=== PATIENT | male | born 1990 | race African-American/Black ===

== ENCOUNTER 2016-06-15 10:35 | Emergency (ER) | payer OTHER ==
[~2016-06-15] VITALS: Ht 182.9 cm; Wt 85.5 kg
[~2016-06-15 10:35] MED LIST: ALBU18HF INHALATION; ALBU8.5H3 INH; BECL8.7A INH; BENZ100C70 PO; FLOV110 INHALATION; PRED20TA PO
[2016-06-15 10:40] VITALS: Ht 182.9 cm; Wt 85.5 kg
[2016-06-15] MEDS ORDERED: ALBU18HF INHALATION (11:30)
--- NOTE | 2016-06-15 12:12 | ERD ---
ER Documentation Chief Complaint Date/Time DATE: 06/15/16 TIME: 12:11 Chief Complaint refill of ventolin HPI This 26-year-old presented emergency room [facility] for refills albuterol inhaler as he has run out recently. He is not currently have any signs of shortness of breath, cough or fever. ROS All systems reviewed and are negative except as per history of present illness. Medications Home Meds Active Scripts Albuterol Sulfate* (Ventolin HFA*) 18 Gm Hfa.aer.ad, 2 PUFF INHALATION Q4H, #2 INHALER Prov:KAROLINACIPRIANO DO 06/15/16 Albuterol Sulfate* (Ventolin HFA*) 18 Gm Hfa.aer.ad, 2 PUFF INHALATION Q4H, #1 INHALER Prov:AGUSTINA GOMEZ MD 05/13/16 Albuterol Sulfate* (Ventolin HFA*) 18 Gm Hfa.aer.ad, 2 PUFF INHALATION Q4H, #1 INHALER Prov:EDINSON TEIXEIRA 05/01/16 Prednisone* (Prednisone*) 20 Mg Tab, 40 MG PO DAILY for 4 Days, TAB Prov:AGUSTINA GOMEZ MD 03/04/16 Albuterol Sulfate* (Ventolin HFA*) 18 Gm Hfa.aer.ad, 2 PUFF INHALATION Q4H, #1 INHALER 2 Refills Prov:AGUSTINA GOMEZ MD 03/04/16 Beclomethasone Dip* (Qvar 40*) 7.3 Gm Inha, 1 PUFF INH BID, #1 INHALER Prov:AGUSTINA GOMEZ MD 03/04/16 Benzonatate* (Tessalon Perle*) 100 Mg Capsule, 100 MG PO Q8H Y for COUGH, #30 CAP Prov:JESSICA MACIAS DO 01/27/16 Prednisone* (Prednisone*) 20 Mg Tab, 40 MG PO DAILY for 4 Days, #15 TAB take 40 mg for 4 days, then 30 mg for 3 days. Prov:JESSICA MACIAS DO 01/27/16 Fluticasone Propionate* (Flovent* HFA 110) 12 Gm Inha, 1 PUFF INHALATION BID, # 1 INHALER Prov:JESSICA MACIAS DO 01/27/16 Albuterol Sulfate* (Proair HFA*) 8.5 Gm Hfa.aer.ad, 2 PUFF INH Q4H Y for WHEEZING AND SOB, #1 INHALER Prov:JESSICA MACIAS DO 01/27/16 Albuterol Sulfate* (Proair HFA*) 8.5 Gm Hfa.aer.ad, 2 PUFF INH Q4, #1 INHALER Prov:YVAN OLIVIER PA-C 01/15/16 Prednisone* (Prednisone*) 20 Mg Tab, 40 MG PO DAILY for 4 Days, TAB Prov:CATHY CARDOSO PA-C 12/31/15 Albuterol Sulfate* (Proair HFA*) 8.5 Gm Hfa.aer.ad, 2 PUFF INH Q4, #1 INHALER Prov:CATHY CARDOSO PA-C 12/31/15 Albuterol Sulfate* (Ventolin HFA*) 18 Gm Hfa.aer.ad, 2 PUFF INHALATION Q4H, #2 INHALER Prov:CIPRIANO TURCIOS DO 12/18/15 Albuterol Sulfate* (Proair HFA*) 8.5 Gm Hfa.aer.ad, 2 PUFF INH Q4, #1 INHALER Prov:STANTON ROBERTSON DO 11/30/15 Allergies Allergies: Coded Allergies: No Known Allergy (Unverified , 12/18/15) PMhx/Soc History of Surgery: No Anesthesia Reaction: No Hx Neurological Disorder: No Hx Respiratory Disorders: Yes (asthma ) Hx Cardiac Disorders: No Hx Psychiatric Problems: No Hx Miscellaneous Medical Probl: No Hx Alcohol Use: Yes Hx Substance Use: Yes (marijuana ) Hx Tobacco Use: No Physical Exam Vitals Vital Signs Date Time Temp Pulse Resp B/P Pulse Ox O2 Delivery O2 Flow Rate FiO2 06/15/16 10:40 97.9 67 18 110/58 99 Physical Exam Const: [] No distress Head: Atraumatic Resp: Clear to auscultation bilaterally Procedures/MDM Simple medication refill for Ventolin. I discharged the patient with 2 albuterol refills as well as provided primary care follow-up with list of local clinic care clinics recommended follow-up in 2-3 days. Return precautions for any acute exacerbation or shortness of breath. Departure Diagnosis: Primary Impression: Encounter for medication refill Condition: Stable Patient Instructions: Asthma Medications Referrals: [facility] YOU HAVE RECEIVED A MEDICAL SCREENING EXAM AND THE RESULTS INDICATE THAT YOU DO NOT HAVE A CONDITION THAT REQUIRES URGENT TREATMENT IN THE EMERGENCY DEPARTMENT. FURTHER EVALUATION AND TREATMENT OF YOUR CONDITION CAN WAIT UNTIL YOU ARE SEEN IN YOUR DOCTORS OFFICE WITHIN THE NEXT 1-2 DAYS. IT IS YOUR RESPONSIBILITY TO MAKE AN APPOINTMENT FOR FOLOW-UP CARE. IF YOU HAVE A PRIMARY DOCTOR --you should call your primary doctor and schedule an appointment IF YOU DO NOT HAVE A PRIMARY DOCTOR YOU CAN CALL OUR PHYSICIAN REFERRAL HOTLINE AT IF YOU CAN NOT AFFORD TO SEE A PHYSICIAN YOU CAN CHOSE FROM THE FOLLOWING [facility] CL[facility]ICS [facility] [address] [facility]. [facility] [address] [facility] [facility] [address] [facility]. [facility] [address] [facility]. [facility] [address] [facility]. [facility]. [address] Additional Instructions: Call your primary care doctor TOMORROW for an appointment during the next 2-3 days.See the doctor sooner or return here if your condition worsens before your appointment time. CIPRIANO TURCIOS DO Jun 15, 2016 12:12
== END 2016-06-15 11:37 | disposition home or self-care (01) ==
LOC: E/R 10:35
DX: Z76.0 Encounter for issue of repeat prescription (principal); J45.909 Unspecified asthma, uncomplicated
CPT/HCPCS: 99281

== ENCOUNTER 2016-08-05 19:13 | Emergency (ER) | payer OTHER ==
[~2016-08-05] VITALS: Ht 193 cm; Wt 87.5 kg
[2016-08-05 19:24] VITALS: Ht 193 cm; Wt 87.5 kg
[2016-08-05 20:08] LABS: URINE BLOOD (Dip) POC Negative (NEGATIVE)
--- NOTE | 2016-08-05 20:11 | ERD ---
ER Documentation Chief Complaint Date/Time DATE: 08/05/16 TIME: 20:10 Chief Complaint penile discharge/painful urination x 2 days HPI This 26-year-old male complains of penile discharge and dysuria for the last 2 days. He was notified by partner that they are diagnosed with chlamydia. He denies fevers, vomiting, shortness breath or chest pain or general rashes or blisters. ROS All systems reviewed and are negative except as per history of present illness. Medications Home Meds Active Scripts Albuterol Sulfate* (Ventolin HFA*) 18 Gm Hfa.aer.ad, 2 PUFF INHALATION Q4H, #2 INHALER Prov:KAROLINACIPRIANO 06/15/16 Albuterol Sulfate* (Ventolin HFA*) 18 Gm Hfa.aer.ad, 2 PUFF INHALATION Q4H, #1 INHALER Prov:AGUSTINA GOMEZ MD 05/13/16 Albuterol Sulfate* (Ventolin HFA*) 18 Gm Hfa.aer.ad, 2 PUFF INHALATION Q4H, #1 INHALER Prov:EDINSON TEIXEIRA 05/01/16 Prednisone* (Prednisone*) 20 Mg Tab, 40 MG PO DAILY for 4 Days, TAB Prov:AGUSTINA GOMEZ MD 03/04/16 Albuterol Sulfate* (Ventolin HFA*) 18 Gm Hfa.aer.ad, 2 PUFF INHALATION Q4H, #1 INHALER 2 Refills Prov:AGUSTINA GOMEZ MD 03/04/16 Beclomethasone Dip* (Qvar 40*) 7.3 Gm Inha, 1 PUFF INH BID, #1 INHALER Prov:AGUSTINA GOMEZ MD 03/04/16 Benzonatate* (Tessalon Perle*) 100 Mg Capsule, 100 MG PO Q8H Y for COUGH, #30 CAP Prov:JESSICA MACIAS DO 01/27/16 Prednisone* (Prednisone*) 20 Mg Tab, 40 MG PO DAILY for 4 Days, #15 TAB take 40 mg for 4 days, then 30 mg for 3 days. Prov:JESSICA MACIAS DO 01/27/16 Fluticasone Propionate* (Flovent* HFA 110) 12 Gm Inha, 1 PUFF INHALATION BID, # 1 INHALER Prov:JESSICA MACIAS DO 01/27/16 Albuterol Sulfate* (Proair HFA*) 8.5 Gm Hfa.aer.ad, 2 PUFF INH Q4H Y for WHEEZING AND SOB, #1 INHALER Prov:JESSICA MACIAS DO 01/27/16 Albuterol Sulfate* (Proair HFA*) 8.5 Gm Hfa.aer.ad, 2 PUFF INH Q4, #1 INHALER Prov:YVAN OLIVIER PA-C 01/15/16 Prednisone* (Prednisone*) 20 Mg Tab, 40 MG PO DAILY for 4 Days, TAB Prov:CATHY CARDOSO PA-C 12/31/15 Albuterol Sulfate* (Proair HFA*) 8.5 Gm Hfa.aer.ad, 2 PUFF INH Q4, #1 INHALER Prov:CATHY CARDOSO PA-C 12/31/15 Albuterol Sulfate* (Ventolin HFA*) 18 Gm Hfa.aer.ad, 2 PUFF INHALATION Q4H, #2 INHALER Prov:CIPRIANO TURCIOS DO 12/18/15 Albuterol Sulfate* (Proair HFA*) 8.5 Gm Hfa.aer.ad, 2 PUFF INH Q4, #1 INHALER Prov:STANTON ROBERTSON DO 11/30/15 Allergies Allergies: Coded Allergies: No Known Allergy (Unverified , 08/05/16) PMhx/Soc Medical and Surgical Hx: pt denies Surgical Hx History of Surgery: No Anesthesia Reaction: No Hx Neurological Disorder: No Hx Respiratory Disorders: Yes (asthma ) Hx Cardiac Disorders: No Hx Psychiatric Problems: No Hx Miscellaneous Medical Probl: No Hx Alcohol Use: Yes Hx Substance Use: Yes (marijuana ) Hx Tobacco Use: No Smoking Status: Never smoker Physical Exam Vitals Vital Signs Date Time Temp Pulse Resp B/P Pulse Ox O2 Delivery O2 Flow Rate FiO2 08/05/16 19:24 99.8 78 20 118/64 100 Physical Exam Const: [] Alert, [id number]. Head: Atraumatic Eyes: Normal Conjunctiva ENT: Normal External Ears, Nose and Mouth. Neck: Full range of motion..~ No meningismus. Resp: Clear to auscultation bilaterally Cardio: Regular rate and rhythm, no murmurs Abd: Soft, non tender, non distended. Normal bowel sounds. Slight penile discharge without rashes, or skin lesions. Nontender normal size testicles Skin: No petechiae or rashes Back: No midline or flank tenderness Ext: No cyanosis, or edema Neur: Awake and alert Psych: Normal Mood and Affect Results 24 hrs Current Medications Medications (Trade) Dose Ordered Sig/Terence Route PRN Reason Start Time Stop Time Status Last Admin Dose Admin Azithromycin (Zithromax) 1,000 mg ONCE ONCE PO 08/05/16 20:30 08/05/16 20:31 Ceftriaxone Sodium (Rocephin) 250 mg ONCE ONCE IM 08/05/16 20:30 08/05/16 20:31 Lidocaine (Xylocaine 1% (Mdv) 20 ml) 20 ml ONCE ONCE SC 08/05/16 20:30 08/05/16 20:31 Procedures/MDM Urine was sent for gonorrhea chlamydia. Patient presents with signs and symptoms of urethritis with a known possible exposure to chlamydia. He was given Zithromax 1 g by mouth and Rocephin 250 mg IM. The patient was stable with no new complaints during the ER course. Clinically, there is no current evidence to suggest meningitis, sepsis, acute abdomen, pneumonia, acute coronary syndrome, pulmonary embolism, or any other emergent condition appearing to require further evaluation or hospitalization. The patient should certainly return for any new or worsening symptoms per the aftercare instructions. They should otherwise follow-up with her primary care doctor for reevaluation this week. Departure Diagnosis: Primary Impression: Urethritis Condition: Stable Patient Instructions: Urethritis, Male (Gc Vs. Chlam) Additional Instructions: You have been treated for gonorrhea and chlamydia. Recommend notifying treating partners. Recheck for new or worsening symptoms with primary care doctor. Avoid unprotected sex for the next week. AGUSTINA GOMEZ MD Aug 05, 2016 20:11
[2016-08-05] MEDS ORDERED: CEFTRIAXONE 250 MG INJ IM ONE (20:30)
[2016-08-05] MEDS ORDERED: LIDOCAINE 1% (MDV) 20 ML INJ SC ONE (20:30)
[2016-08-05] MEDS ORDERED: AZITHROMYCIN 250 MG TAB PO ONE (20:30)
== END 2016-08-05 22:09 | disposition left against medical advice (07) ==
LOC: FTE 19:13
DX: N34.2 Other urethritis (principal); J45.909 Unspecified asthma, uncomplicated
CPT/HCPCS: 81003; 87591; 96372; J0696; Z7502; Z7610

== ENCOUNTER 2016-08-11 12:09 | Emergency (ER) | payer OTHER ==
[~2016-08-11] VITALS: Wt 83.0 kg
[2016-08-11] MEDS ORDERED: ALBUTEROL 0.5% (NEB) 2.5 MG/0.5 ML AMP HHN STA (12:37)
[2016-08-11] MEDS ORDERED: predniSONE 20 MG TAB PO ONE (13:00)
[2016-08-11] MEDS ORDERED: ALBU18HF INHALATION (13:09)
[2016-08-11] MEDS ORDERED: PRED20TA PO (13:09)
--- NOTE | 2016-08-11 13:19 | ERD ---
ER Documentation Chief Complaint Date/Time DATE: 08/11/16 TIME: 13:17 Chief Complaint PT HERE FOR MED REFILL FOR INHALER, PREDNISONE HPI This 26-year-old male presents with wheezing. He has a history of asthma and is out of his inhaler. Patient was seen by me proximal 1 week ago for urethritis. Review of the record shows that chlamydia is positive. He did get treated with Zithromax. Patient denies any fevers, vomiting, chest pain. ROS All systems reviewed and are negative except as per history of present illness. Medications Home Meds Active Scripts Albuterol Sulfate* (Ventolin HFA*) 18 Gm Hfa.aer.ad, 2 PUFF INHALATION Q4H, #1 INHALER Prov:AGUSTINA GOMEZ MD 08/11/16 Prednisone* (Prednisone*) 20 Mg Tab, 40 MG PO DAILY for 5 Days, TAB Prov:AGUSTINA GOMEZ MD 08/11/16 Albuterol Sulfate* (Ventolin HFA*) 18 Gm Hfa.aer.ad, 2 PUFF INHALATION Q4H, #2 INHALER Prov:CIPRIANO TURCIOS DO 06/15/16 Albuterol Sulfate* (Ventolin HFA*) 18 Gm Hfa.aer.ad, 2 PUFF INHALATION Q4H, #1 INHALER Prov:AGUSTINA GOMEZ MD 05/13/16 Albuterol Sulfate* (Ventolin HFA*) 18 Gm Hfa.aer.ad, 2 PUFF INHALATION Q4H, #1 INHALER Prov:EDINSON TEIXEIRA 05/01/16 Prednisone* (Prednisone*) 20 Mg Tab, 40 MG PO DAILY for 4 Days, TAB Prov:AGUSTINA GOMEZ MD 03/04/16 Albuterol Sulfate* (Ventolin HFA*) 18 Gm Hfa.aer.ad, 2 PUFF INHALATION Q4H, #1 INHALER 2 Refills Prov:AGUSTINA GOMEZ MD 03/04/16 Beclomethasone Dip* (Qvar 40*) 7.3 Gm Inha, 1 PUFF INH BID, #1 INHALER Prov:AGUSTINA GOMEZ MD 03/04/16 Benzonatate* (Tessalon Perle*) 100 Mg Capsule, 100 MG PO Q8H Y for COUGH, #30 CAP Prov:JESSICA MACIAS DO 01/27/16 Prednisone* (Prednisone*) 20 Mg Tab, 40 MG PO DAILY for 4 Days, #15 TAB take 40 mg for 4 days, then 30 mg for 3 days. Prov:JESSICA MACIAS DO 01/27/16 Fluticasone Propionate* (Flovent* HFA 110) 12 Gm Inha, 1 PUFF INHALATION BID, # 1 INHALER Prov:JESSICA MACIAS DO 01/27/16 Albuterol Sulfate* (Proair HFA*) 8.5 Gm Hfa.aer.ad, 2 PUFF INH Q4H Y for WHEEZING AND SOB, #1 INHALER Prov:JESSICA MACIAS DO 01/27/16 Albuterol Sulfate* (Proair HFA*) 8.5 Gm Hfa.aer.ad, 2 PUFF INH Q4, #1 INHALER Prov:YVAN OLIVIER PA-C 01/15/16 Prednisone* (Prednisone*) 20 Mg Tab, 40 MG PO DAILY for 4 Days, TAB Prov:CATHY CARDOSO PA-C 12/31/15 Albuterol Sulfate* (Proair HFA*) 8.5 Gm Hfa.aer.ad, 2 PUFF INH Q4, #1 INHALER Prov:CATHY CARDOSO PA-C 12/31/15 Albuterol Sulfate* (Ventolin HFA*) 18 Gm Hfa.aer.ad, 2 PUFF INHALATION Q4H, #2 INHALER Prov:CIPRIANO TURCIOS DO 12/18/15 Albuterol Sulfate* (Proair HFA*) 8.5 Gm Hfa.aer.ad, 2 PUFF INH Q4, #1 INHALER Prov:STANTON ROBERTSON DO 11/30/15 Allergies Allergies: Coded Allergies: No Known Allergy (Unverified , 08/05/16) PMhx/Soc History of Surgery: No Anesthesia Reaction: No Hx Neurological Disorder: No Hx Respiratory Disorders: Yes (asthma ) Hx Cardiac Disorders: No Hx Psychiatric Problems: No Hx Miscellaneous Medical Probl: No Hx Alcohol Use: Yes Hx Substance Use: Yes (marijuana ) Hx Tobacco Use: No Smoking Status: Never smoker Physical Exam Vitals Vital Signs Date Time Temp Pulse Resp B/P Pulse Ox O2 Delivery O2 Flow Rate FiO2 08/11/16 12:10 98.5 59 17 116/68 98 Physical Exam Const: [] Alert, [id number]. Head: Atraumatic Eyes: Normal Conjunctiva ENT: Normal External Ears, Nose and Mouth. Neck: Full range of motion..~ No meningismus. Resp: Clear to auscultation bilaterally. Scattered wheezing. No rales or retractions appreciated Cardio: Regular rate and rhythm, no murmurs Abd: Soft, non tender, non distended. Normal bowel sounds Skin: No petechiae or rashes Back: No midline or flank tenderness Ext: No cyanosis, or edema Neur: Awake and alert Psych: Normal Mood and Affect Results 24 hrs Current Medications Medications (Trade) Dose Ordered Sig/Terence Route PRN Reason Start Time Stop Time Status Last Admin Dose Admin Prednisone (Prednisone) 60 mg ONCE ONCE PO 08/11/16 13:00 08/11/16 13:01 DC 08/11/16 12:48 Albuterol (Proventil 0.5% (Neb)) 5 mg ONCE STAT HHN 08/11/16 12:37 08/11/16 12:38 DC 08/11/16 12:46 Procedures/MDM Patient was given prednisone 60 mg by mouth. Patient was given albuterol treatment 1 and had clear lungs on serial exam. Patient is requesting refills of his Ventolin and a short course of prednisone. Patient shows no signs of hypoxemia, respiratory distress, pneumonia. Patient is requesting a test of cure for his chlamydia and urine was sent for gonorrhea chlamydia. Patient has no current symptoms appears safe for discharge and outpatient treatment. The patient was stable with no new complaints during the ER course. Clinically, there is no current evidence to suggest meningitis, sepsis, acute abdomen, pneumonia, acute coronary syndrome, pulmonary embolism, or any other emergent condition appearing to require further evaluation or hospitalization. The patient should certainly return for any new or worsening symptoms per the aftercare instructions. They should otherwise follow-up with her primary care doctor for reevaluation this week. Departure Diagnosis: Primary Impression: Asthma exacerbation Condition: Stable Patient Instructions: Asthma, Acute (Adult) Additional Instructions: Recheck for new or worsening symptoms or primary care doctor. AGUSTINA GOMEZ MD Aug 11, 2016 13:18
[2016-08-11 13:28] VITALS: BP 119/70; PULSE 66; RESP 20; TEMP 98.3
== END 2016-08-11 13:31 | disposition home or self-care (01) ==
LOC: FTE 12:09
DX: J45.901 Unspecified asthma with (acute) exacerbation (principal)
CPT/HCPCS: 94664; J7512; Z7502; Z7610

== ENCOUNTER 2016-09-20 17:12 | Emergency (ER) | payer OTHER ==
[~2016-09-20] VITALS: Wt 89.0 kg
[2016-09-20] MEDS ORDERED: IPRATROPIUM (NEB) 0.5 MG/2.5 ML AMP INH STA (17:54)
[2016-09-20] MEDS ORDERED: predniSONE 20 MG TAB PO STA (17:54)
[2016-09-20] MEDS ORDERED: ALBUTEROL 0.5% (NEB) 2.5 MG/0.5 ML AMP INH STA (17:54)
[2016-09-20] MEDS ORDERED: ALBU8.5H3 INH (17:56)
[2016-09-20] MEDS ORDERED: PRED20TA PO (17:56)
--- NOTE | 2016-09-20 18:26 | RADRPT ---
PROCEDURE: Chest x-ray CLINICAL INDICATION: Asthma TECHNIQUE: Chest single view COMPARISON: 07/29/2014 FINDINGS: The heart is normal in size. The pulmonary vessels are normal in caliber. The lungs are clear. Th e costophrenic angles are sharp. The visualized bony thorax is unremarkable. IMPRESSION: No acute cardiopulmonary disease. RPTAT: HH .Luis Jain MD, Date Time Electronically viewed and signed by .Luis Jain MD, on 09/20/2016 18:26 .W/
--- NOTE | 2016-09-20 18:33 | ERD ---
ER Documentation Chief Complaint Date/Time DATE: 09/20/16 TIME: 18:31 Chief Complaint ASTHMA WITH PRODUCTIVE COUGH HPI 26-year-old man with a history of asthma complains of cough and wheezing 3-4 weeks. He quit smoking last month and states he has had increased cough, he also ran out of his albuterol inhaler. Denies fevers or chills, no weight loss , no hemoptysis, no chest pain or shortness of breath. She denies rash or calf or leg swelling. ROS All systems reviewed and are negative except as per history of present illness. Medications Home Meds Active Scripts Albuterol Sulfate* (Proair HFA*) 8.5 Gm Hfa.aer.ad, 2 PUFF INH Q6H Y for COUGH, #1 INHALER Prov:JOHN ARREAGA MD 09/20/16 Prednisone (Prednisone) 20 Mg Tablet, 20 MG PO BID, #8 TAB Prov:JOHN ARREAGA MD 09/20/16 Albuterol Sulfate* (Ventolin HFA*) 18 Gm Hfa.aer.ad, 2 PUFF INHALATION Q4H, #1 INHALER Prov:AGUSTINA GOMEZ MD 08/11/16 Prednisone* (Prednisone*) 20 Mg Tab, 40 MG PO DAILY for 5 Days, TAB Prov:AGUSTINA GOMEZ MD 08/11/16 Albuterol Sulfate* (Ventolin HFA*) 18 Gm Hfa.aer.ad, 2 PUFF INHALATION Q4H, #2 INHALER Prov:CIPRIANO TURCIOS DO 06/15/16 Albuterol Sulfate* (Ventolin HFA*) 18 Gm Hfa.aer.ad, 2 PUFF INHALATION Q4H, #1 INHALER Prov:AGUSTINA GOMEZ MD 05/13/16 Albuterol Sulfate* (Ventolin HFA*) 18 Gm Hfa.aer.ad, 2 PUFF INHALATION Q4H, #1 INHALER Prov:EDINSON TEIXEIRA 05/01/16 Prednisone* (Prednisone*) 20 Mg Tab, 40 MG PO DAILY for 4 Days, TAB Prov:AGUSTINA GOMEZ MD 03/04/16 Albuterol Sulfate* (Ventolin HFA*) 18 Gm Hfa.aer.ad, 2 PUFF INHALATION Q4H, #1 INHALER 2 Refills Prov:AGUSTINA GOMEZ MD 03/04/16 Beclomethasone Dip* (Qvar 40*) 7.3 Gm Inha, 1 PUFF INH BID, #1 INHALER Prov:AGUSTINA GOMEZ MD 03/04/16 Benzonatate* (Tessalon Perle*) 100 Mg Capsule, 100 MG PO Q8H Y for COUGH, #30 CAP Prov:JESSICA MACIAS 01/27/16 Prednisone* (Prednisone*) 20 Mg Tab, 40 MG PO DAILY for 4 Days, #15 TAB take 40 mg for 4 days, then 30 mg for 3 days. Prov:COLLEENJESSICA FOUNTAIN 01/27/16 Fluticasone Propionate* (Flovent* HFA 110) 12 Gm Inha, 1 PUFF INHALATION BID, # 1 INHALER Prov:COLLEEN,JESSICA DO 01/27/16 Albuterol Sulfate* (Proair HFA*) 8.5 Gm Hfa.aer.ad, 2 PUFF INH Q4H Y for WHEEZING AND SOB, #1 INHALER Prov:JESSICA MACIAS 01/27/16 Albuterol Sulfate* (Proair HFA*) 8.5 Gm Hfa.aer.ad, 2 PUFF INH Q4, #1 INHALER Prov:YVAN OLIVIER PA-C 01/15/16 Prednisone* (Prednisone*) 20 Mg Tab, 40 MG PO DAILY for 4 Days, TAB Prov:CATHY CARDOSO PA-C 12/31/15 Albuterol Sulfate* (Proair HFA*) 8.5 Gm Hfa.aer.ad, 2 PUFF INH Q4, #1 INHALER Prov:CATHY CARDOSO PA-C 12/31/15 Albuterol Sulfate* (Ventolin HFA*) 18 Gm Hfa.aer.ad, 2 PUFF INHALATION Q4H, #2 INHALER Prov:CIPRIANO TURCIOS DO 12/18/15 Albuterol Sulfate* (Proair HFA*) 8.5 Gm Hfa.aer.ad, 2 PUFF INH Q4, #1 INHALER Prov:STANTON ROBERTSON DO 11/30/15 Allergies Allergies: Coded Allergies: No Known Allergy (Unverified , 08/05/16) PMhx/Soc Asthma History of Surgery: No Anesthesia Reaction: No Hx Neurological Disorder: No Hx Respiratory Disorders: Yes (asthma ) Hx Cardiac Disorders: No Hx Psychiatric Problems: No Hx Miscellaneous Medical Probl: No Hx Alcohol Use: Yes Hx Substance Use: Yes (marijuana ) Hx Tobacco Use: No Smoking Status: Former smoker FmHx Family History: No diabetes Physical Exam Vitals Vital Signs Date Time Temp Pulse Resp B/P Pulse Ox O2 Delivery O2 Flow Rate FiO2 09/20/16 18:20 76 22 97 21 09/20/16 17:16 98.0 79 18 122/79 99 Physical Exam GENERAL: Well-developed, well-nourished, well-hydrated, in no apparent distress , looks nontoxic in appearance HEENT: Moist mucous membranes, pink conjunctiva, no cervical spine tenderness or step-off deformities, no goiter, no jaundice or icterus, extraocular movements intact without pain. No submandibular induration, and no pharyngeal erythema NEURO: Alert and oriented 3, cranial nerves II through XII intact bilaterally, pupils equal round reactive to light, no focal deficits or facial asymmetry, sensation intact distally Strength 5/5 in upper and lower extremities bilaterally CARDIAC: Regular rate and rhythm, no murmurs rubs or gallops LUNGS: Scattered wheezes, no crackles or stridor ABDOMEN: Soft nontender, no guarding, no rigidity, no rebound, no psoas sign no obturator sign. Normoactive bowel sounds SKIN: Warm and dry to touch, no abrasions, contusions, or hematomas, no lacerations, no ecchymosis, no target lesions, and without ulcers EXTREMITIES: No clubbing cyanosis or edema, calves are bilaterally symmetrical, no Homans sign, no popliteal cord sign. Distal pulses equal and bilateral PSYCH: Normal affect without agitation or irritability Results 24 hrs Current Medications Medications (Trade) Dose Ordered Sig/Terence Route PRN Reason Start Time Stop Time Status Last Admin Dose Admin Albuterol (Proventil 0.5% (Neb)) 10 mg ONCE STAT INH 09/20/16 17:54 09/20/16 17:56 DC 09/20/16 18:17 Ipratropium [place] (Atrovent 0.02% (Neb)) 1 mg ONCE STAT INH 09/20/16 17:54 09/20/16 17:56 DC 09/20/16 18:17 Prednisone (Prednisone) 60 mg ONCE STAT PO 09/20/16 17:54 09/20/16 17:56 DC 09/20/16 18:15 Procedures/MDM I administered 10 mg of albuterol and ipratropium 1 mg via nebulizer, prednisone 60 mg p.o. with good effect. Repeat pulmonary exam revealed clear lungs without wheezing. Respiratory rate was 18 breaths per minute and normal posttreatment. Chest X-ray 1V Interpreted by me: Soft Tissue: No acute abnormalities Bones: No acute abnormalities Mediastinum/Cardiac Silhouette/Lungs: No acute abnormalities Differential diagnoses considered, included but not limited to acute coronary syndrome, pulmonary embolism, aortic dissection, abdominal aortic aneurysm, sepsis, stroke, meningitis, encephalitis, pneumonia, appendicitis, cholecystitis , bowel obstruction, pyelonephritis, nephrolithiasis, cystitis, as well as metabolic, hematologic, and electrolyte abnormalities. As well as abscess, cellulitis, fractures, and dislocations. Patient feels much better at this time, and vital signs are normal, symptoms have improved. I did give strict instructions to return to the ED if symptoms continue or worsen, patient will otherwise follow-up with primary care physician. Patient understood instructions and agreed to plan. Departure Diagnosis: Primary Impression: Asthma attack Condition: Good Patient Instructions: Asthma, Acute (Adult) JOHN ARREAGA MD Sep 20, 2016 18:33
== END 2016-09-20 19:22 | disposition home or self-care (01) ==
LOC: FTE 17:12
DX: J45.901 Unspecified asthma with (acute) exacerbation (principal); Z87.891 Personal history of nicotine dependence
CPT/HCPCS: 71010; 94644; J7512; Z7502; Z7610

== ENCOUNTER 2016-10-12 04:18 | Emergency (ER) | payer OTHER ==
[~2016-10-12] VITALS: Ht 177.8 cm; Wt 83.0 kg
[2016-10-12 04:24] VITALS: Ht 177.8 cm; Wt 83.0 kg
[2016-10-12] MEDS ORDERED: ALBUTEROL 0.5% (NEB) 2.5 MG/0.5 ML AMP INH STA (06:18)
[2016-10-12] MEDS ORDERED: IPRATROPIUM (NEB) 0.5 MG/2.5 ML AMP INH STA (06:18)
[2016-10-12] MEDS ORDERED: METHYLPREDNISOLONE 125 MG INJ IM STA (06:18)
--- NOTE | 2016-10-12 08:27 | RADRPT ---
PROCEDURE: XR Chest. CLINICAL INDICATION: Asthma TECHNIQUE: Single frontal chest x-ray. COMPARISON: 09/20/2016 FINDINGS: The lungs are clear. No focal opacification is seen. The cardiomediastinal silhouette is unremarka ble. The osseous structures are unremarkable. IMPRESSION: 1. No acute infiltrate or interval change. RPTAT: PP .Ministerio Caro MD, Date Time Electronically viewed and signed by .Ministerio Caro MD, MD on 10/12/2016 08:27 .d/
[2016-10-12] MEDS ORDERED: BECL8.7A INH (08:40)
[2016-10-12] MEDS ORDERED: ALBU8.5H3 INH (08:40)
[2016-10-12] MEDS ORDERED: PRED20TA PO (08:40)
--- NOTE | 2016-10-12 12:06 | ERD ---
ER Documentation Chief Complaint Date/Time DATE: 10/12/16 TIME: 12:02 Chief Complaint asthma hx- asthma HPI 26-year-old male patient with a past medical history of asthma presents to the ED complaining of shortness of breath that started 2 weeks ago. States that he tried using his inhaler which did slightly improve his symptoms but he feels like he is wheezing. Denies any sick contacts. States that he has felt tactile fevers at home. Denies any chest pain, dyspnea on exertion, orthopnea, hemoptysis, abdominal pain, nausea, vomiting, diarrhea, rashes. ROS All systems reviewed and are negative except as per history of present illness. Medications Home Meds Active Scripts Beclomethasone Dip* (Qvar 40*) 7.3 Gm Inha, 1 PUFF INH BID, #1 INHALER Prov:WILLAM MCPHERSON PA-C 10/12/16 Albuterol Sulfate* (Proair HFA*) 8.5 Gm Hfa.aer.ad, 2 PUFF INH Q4, #1 INHALER Prov:WILLAM MCPHERSON PA-C 10/12/16 Prednisone* (Prednisone*) 20 Mg Tab, 40 MG PO DAILY for 4 Days, TAB Prov:WILLAM MCPHERSON PA-C 10/12/16 Albuterol Sulfate* (Proair HFA*) 8.5 Gm Hfa.aer.ad, 2 PUFF INH Q6H Y for COUGH, #1 INHALER Prov:JOHN ARREAGA MD 09/20/16 Prednisone (Prednisone) 20 Mg Tablet, 20 MG PO BID, #8 TAB Prov:JOHN ARREAGA MD 09/20/16 Albuterol Sulfate* (Ventolin HFA*) 18 Gm Hfa.aer.ad, 2 PUFF INHALATION Q4H, #1 INHALER Prov:AGUSTINA GOMEZ MD 08/11/16 Prednisone* (Prednisone*) 20 Mg Tab, 40 MG PO DAILY for 5 Days, TAB Prov:AGUSTINA GOMEZ MD 08/11/16 Albuterol Sulfate* (Ventolin HFA*) 18 Gm Hfa.aer.ad, 2 PUFF INHALATION Q4H, #2 INHALER Prov:CIPRIANO TURCIOS DO 06/15/16 Albuterol Sulfate* (Ventolin HFA*) 18 Gm Hfa.aer.ad, 2 PUFF INHALATION Q4H, #1 INHALER Prov:AGUSTINA GOMEZ MD 05/13/16 Albuterol Sulfate* (Ventolin HFA*) 18 Gm Hfa.aer.ad, 2 PUFF INHALATION Q4H, #1 INHALER Prov:EDINSON TEIXEIRA 05/01/16 Prednisone* (Prednisone*) 20 Mg Tab, 40 MG PO DAILY for 4 Days, TAB Prov:AGUSTINA GOMEZ MD 03/04/16 Albuterol Sulfate* (Ventolin HFA*) 18 Gm Hfa.aer.ad, 2 PUFF INHALATION Q4H, #1 INHALER 2 Refills Prov:AGUSTINA GOMEZ MD 03/04/16 Beclomethasone Dip* (Qvar 40*) 7.3 Gm Inha, 1 PUFF INH BID, #1 INHALER Prov:AGUSTINA GOMEZ MD 03/04/16 Benzonatate* (Tessalon Perle*) 100 Mg Capsule, 100 MG PO Q8H Y for COUGH, #30 CAP Prov:JESSICA MACIAS DO 01/27/16 Prednisone* (Prednisone*) 20 Mg Tab, 40 MG PO DAILY for 4 Days, #15 TAB take 40 mg for 4 days, then 30 mg for 3 days. Prov:JESSICA MACIAS DO 01/27/16 Fluticasone Propionate* (Flovent* HFA 110) 12 Gm Inha, 1 PUFF INHALATION BID, # 1 INHALER Prov:COLLEENJESSICA DO 01/27/16 Albuterol Sulfate* (Proair HFA*) 8.5 Gm Hfa.aer.ad, 2 PUFF INH Q4H Y for WHEEZING AND SOB, #1 INHALER Prov:COLLEENBAMBIJESSICA DO 01/27/16 Albuterol Sulfate* (Proair HFA*) 8.5 Gm Hfa.aer.ad, 2 PUFF INH Q4, #1 INHALER Prov:YVAN OLIVIER PA-C 01/15/16 Prednisone* (Prednisone*) 20 Mg Tab, 40 MG PO DAILY for 4 Days, TAB Prov:CATHY CARDOSO PA-C 12/31/15 Albuterol Sulfate* (Proair HFA*) 8.5 Gm Hfa.aer.ad, 2 PUFF INH Q4, #1 INHALER Prov:CATHY CARDOSO PA-C 12/31/15 Albuterol Sulfate* (Ventolin HFA*) 18 Gm Hfa.aer.ad, 2 PUFF INHALATION Q4H, #2 INHALER Prov:CIPRIANO TURCIOS DO 12/18/15 Albuterol Sulfate* (Proair HFA*) 8.5 Gm Hfa.aer.ad, 2 PUFF INH Q4, #1 INHALER Prov:STANTON ROBERTSONFlor DO 11/30/15 Allergies Allergies: Coded Allergies: No Known Allergy (Unverified , 08/05/16) PMhx/Soc Medical and Surgical Hx: pt denies Surgical Hx History of Surgery: No Anesthesia Reaction: No Hx Neurological Disorder: No Hx Respiratory Disorders: Yes (Asthma on Qvar) Hx Cardiac Disorders: No Hx Psychiatric Problems: No Hx Miscellaneous Medical Probl: No Hx Alcohol Use: Yes (occasional) Hx Substance Use: Yes (Had edible marijuana before) Hx Tobacco Use: No Smoking Status: Never smoker Physical Exam Vitals Vital Signs Date Time Temp Pulse Resp B/P Pulse Ox O2 Delivery O2 Flow Rate FiO2 10/12/16 07:25 90 20 96 21 Physical Exam Const: [id number], well-nourished. In no acute distress. Head: Atraumatic, normocephalic Eyes: Normal Conjunctiva without injection. No purulent discharge. PERRL. EOMI ENT: Normal external ear. Ear canal without erythema. Tympanic membrane pearly anglin without effusion or bulging. Nasal canal clear with normal turbinates. Moist oropharynx without tonsillar exudates. Non-erythematous pharynx. Uvula midline. No drooling. No trismus. Neck: Full range of motion. No meningismus. No cervical lymphadenopathy. Resp: Inspiratory wheezing and expiratory wheezing noted. No rhonchi, rales, or crackles. No accessory muscle use. No retractions. Cardio: Regular rate and rhythm. No murmurs, rubs or gallops. Abd: Soft, non tender, non distended. Normal bowel sounds. No palpable masses. No rebound tenderness. No guarding. Skin: No petechiae or rashes Back: No midline tenderness. No CVA tenderness. Ext: No cyanosis, or edema. Neur: Awake and alert. Psych: Normal Mood and Affect Results 24 hrs Current Medications Medications (Trade) Dose Ordered Sig/Terence Route PRN Reason Start Time Stop Time Status Last Admin Dose Admin Albuterol (Proventil 0.5% (Neb)) 10 mg ONCE STAT INH 10/12/16 06:18 10/12/16 06:20 DC 10/12/16 07:23 Ipratropium [place] (Atrovent 0.02% (Neb)) 1 mg ONCE STAT INH 10/12/16 06:18 10/12/16 06:20 DC 10/12/16 07:24 Methylprednisolone Sodium Succinate (Solu-Medrol) 125 mg ONCE STAT IM 10/12/16 06:18 10/12/16 06:20 DC 10/12/16 07:18 Procedures/MDM This is a 26-year-old male patient with a past medical history of asthma presents to the ED complaining of shortness of breath and wheezing. Patient is afebrile and nontoxic-appearing. Patient has normal vital signs. A breathing treatment consisting of 10 mg albuterol, 1 mg Atrovent, 125 mg Solu-Medrol was ordered to further treat patient with improvement. PROCEDURE: XR Chest. CLINICAL INDICATION: Asthma TECHNIQUE: Single frontal chest x-ray. COMPARISON: 09/20/2016 FINDINGS: The lungs are clear. No focal opacification is seen. The cardiomediastinal silhouette is unremarkable. The osseous structures are unremarkable. IMPRESSION: 1. No acute infiltrate or interval change. Patient likely has symptoms secondary to an asthma exacerbation. Patient is speaking in full sentences. Patient verbalizes that she feels better. No respiratory distress noted. Patient is afebrile and has normal vital signs. Patient's physical exam include lungs which were clear to auscultation and a normal pulse oximetry. There is a low suspicion for anaphylaxis, pneumonia, pneumothorax, mononucleosis, pulmonary embolism, epiglottitis, otitis media, otitis externa, viral/strep pharyngitis, sinusitis, peritonsillar abscess, mastoiditis, retropharyngeal abscess, meningitis, Jorge Luis's angina, sepsis, acute abdomen or other emergent conditions. Discharge medications: Qvar, Prednisone, Ventolin Follow up with primary care physician in 1-2 days. Instructed patient to return to the ED sooner for any worsening symptoms. Patient's questions were answered. Patient understood and agreed with discharge plan. Patient discharged stable. Departure Diagnosis: Primary Impression: Asthma exacerbation Condition: Stable Patient Instructions: Asthma, Acute (Adult) Referrals: [facility] YOU HAVE RECEIVED A MEDICAL SCREENING EXAM AND THE RESULTS INDICATE THAT YOU DO NOT HAVE A CONDITION THAT REQUIRES URGENT TREATMENT IN THE EMERGENCY DEPARTMENT. FURTHER EVALUATION AND TREATMENT OF YOUR CONDITION CAN WAIT UNTIL YOU ARE SEEN IN YOUR DOCTORS OFFICE WITHIN THE NEXT 1-2 DAYS. IT IS YOUR RESPONSIBILITY TO MAKE AN APPOINTMENT FOR FOLOW-UP CARE. IF YOU HAVE A PRIMARY DOCTOR --you should call your primary doctor and schedule an appointment IF YOU DO NOT HAVE A PRIMARY DOCTOR YOU CAN CALL OUR PHYSICIAN REFERRAL HOTLINE AT IF YOU CAN NOT AFFORD TO SEE A PHYSICIAN YOU CAN CHOSE FROM THE FOLLOWING [facility] [address] [facility] [address] [facility] [address] [facility] [address] [facility] [address] [facility]. [facility] [address] [facility]. [facility] YOU HAVE RECEIVED A MEDICAL SCREENING EXAM AND THE RESULTS INDICATE THAT YOU DO NOT HAVE A CONDITION THAT REQUIRES URGENT TREATMENT IN THE EMERGENCY DEPARTMENT. FURTHER EVALUATION AND TREATMENT OF YOUR CONDITION CAN WAIT UNTIL YOU ARE SEEN IN YOUR DOCTORS OFFICE WITHIN THE NEXT 1-2 DAYS. IT IS YOUR RESPONSIBILITY TO MAKE AN APPOINTMENT FOR FOLOW-UP CARE. IF YOU HAVE A PRIMARY DOCTOR --you should call your primary doctor and schedule and appointment IF YOU DO NOT HAVE A PRIMARY DOCTOR YOU CAN CALL OUR PHYSICIAN REFERRAL HOTLINE AT . IF YOU CAN NOT AFFORD TO SEE A PHYSICIAN YOU CAN CHOSE FROM THE FOLLOWING [facility] INSTITUTIONS: [facility] [address] [place] [address] [facility] [address] [place] [address] [facility] [address] [place] [address] [facility] URGENT C[facility]/SPECIALTIES Additional Instructions: Call your primary care doctor TOMORROW for an appointment during the next 2-3 days for further evaluation of your asthma. See the doctor sooner or return here if your condition worsens before your appointment time. WILLAM MCPHERSON PA-C October 12, 2016 12:06 WILLAM MCPHERSON PA-C October 12, 2016 12:06
== END 2016-10-12 08:50 | disposition home or self-care (01) ==
LOC: FTE 04:18
DX: J45.901 Unspecified asthma with (acute) exacerbation (principal)
CPT/HCPCS: 71010; 94644; J2930; Z7610; 96372

== ENCOUNTER 2016-12-10 21:13 | Emergency (ER) | END 2016-12-10 22:40 | disposition home or self-care (01) | DX: Z76.0 Encounter for issue of repeat prescription (principal); J45.909 Unspecified asthma, uncomplicated ==

== ENCOUNTER 2017-01-03 15:41 | Emergency (ER) | payer OTHER ==
[~2017-01-03] VITALS: Ht 193 cm; Wt 86.0 kg
[2017-01-03 16:06] VITALS: Ht 193 cm; Wt 86.0 kg
[2017-01-03] MEDS ORDERED: ALBU8.5H3 INH (17:06)
--- NOTE | 2017-01-03 17:21 | ERD ---
ER Documentation Chief Complaint Date/Time DATE: 01/03/17 TIME: 17:16 Chief Complaint REQUIRES ALBUTEROL MEDICATON REFILL HPI Patient is a 27-year-old male with a history of asthma who presents to the emergency department for refill of his albuterol and Qvar inhalers. Patient states he ran out of his inhalers approximately 3-4 days ago. Patient states that he does occasionally get wheezing however currently he has no wheezing or shortness of breath. Patient denies any fevers, chills, nausea, vomiting, chest pain, shortness of breath, cough or LOC. Denies any recent travel or sick contacts. Patient has no pain at this time. Patient has no additional concerns or complaints. ROS All systems reviewed and are negative except as per history of present illness. Medications Home Meds Active Scripts Albuterol Sulfate* (Proair HFA*) 8.5 Gm Hfa.aer.ad, 2 PUFF INH Q6, #1 INHALER Prov:FRANSISCO DOWLING PA-C 01/03/17 Albuterol Sulfate* (Proair HFA*) 8.5 Gm Hfa.aer.ad, 2 PUFF INH Q4H Y for WHEEZING AND SOB, #1 INHALER Prov:OMI CAO PA-C 12/10/16 Beclomethasone Dip* (Qvar 40*) 7.3 Gm Inha, 1 PUFF INH BID, #1 INHALER Prov:WILLAM MCPHERSON PA-C 10/12/16 Albuterol Sulfate* (Proair HFA*) 8.5 Gm Hfa.aer.ad, 2 PUFF INH Q4, #1 INHALER Prov:WILLAM MCPHERSON PA-C 10/12/16 Prednisone* (Prednisone*) 20 Mg Tab, 40 MG PO DAILY for 4 Days, TAB Prov:WILLAM MCPHERSON PA-C 10/12/16 Albuterol Sulfate* (Proair HFA*) 8.5 Gm Hfa.aer.ad, 2 PUFF INH Q6H Y for COUGH, #1 INHALER Prov:JOHN ARREAGA MD 09/20/16 Prednisone (Prednisone) 20 Mg Tablet, 20 MG PO BID, #8 TAB Prov:JOHN ARREAGA MD 09/20/16 Albuterol Sulfate* (Ventolin HFA*) 18 Gm Hfa.aer.ad, 2 PUFF INHALATION Q4H, #1 INHALER Prov:AGUSTINA GOMEZ MD 08/11/16 Prednisone* (Prednisone*) 20 Mg Tab, 40 MG PO DAILY for 5 Days, TAB Prov:AGUSTINA GOMEZ MD 08/11/16 Albuterol Sulfate* (Ventolin HFA*) 18 Gm Hfa.aer.ad, 2 PUFF INHALATION Q4H, #2 INHALER Prov:CIPRIANO TURCIOS DO 06/15/16 Albuterol Sulfate* (Ventolin HFA*) 18 Gm Hfa.aer.ad, 2 PUFF INHALATION Q4H, #1 INHALER Prov:GAUSTINA GOMEZ MD 05/13/16 Albuterol Sulfate* (Ventolin HFA*) 18 Gm Hfa.aer.ad, 2 PUFF INHALATION Q4H, #1 INHALER Prov:EDINSON TEIXEIRA 05/01/16 Prednisone* (Prednisone*) 20 Mg Tab, 40 MG PO DAILY for 4 Days, TAB Prov:AGUSTINA GOMEZ MD 03/04/16 Albuterol Sulfate* (Ventolin HFA*) 18 Gm Hfa.aer.ad, 2 PUFF INHALATION Q4H, #1 INHALER 2 Refills Prov:AGUSTINA GOMEZ MD 03/04/16 Beclomethasone Dip* (Qvar 40*) 7.3 Gm Inha, 1 PUFF INH BID, #1 INHALER Prov:AGUSTINA GOMEZ MD 03/04/16 Benzonatate* (Tessalon Perle*) 100 Mg Capsule, 100 MG PO Q8H Y for COUGH, #30 CAP Prov:JESSICA MACIAS DO 01/27/16 Prednisone* (Prednisone*) 20 Mg Tab, 40 MG PO DAILY for 4 Days, #15 TAB take 40 mg for 4 days, then 30 mg for 3 days. Prov:JESSICA MACIAS DO 01/27/16 Fluticasone Propionate* (Flovent* HFA 110) 12 Gm Inha, 1 PUFF INHALATION BID, # 1 INHALER Prov:JESSICA MACIAS DO 01/27/16 Albuterol Sulfate* (Proair HFA*) 8.5 Gm Hfa.aer.ad, 2 PUFF INH Q4H Y for WHEEZING AND SOB, #1 INHALER Prov:JESSICA MACIAS DO 01/27/16 Albuterol Sulfate* (Proair HFA*) 8.5 Gm Hfa.aer.ad, 2 PUFF INH Q4, #1 INHALER Prov:YVAN OLIVIER PA-C 01/15/16 Prednisone* (Prednisone*) 20 Mg Tab, 40 MG PO DAILY for 4 Days, TAB Prov:CATHY CARDOSO PA-C 12/31/15 Albuterol Sulfate* (Proair HFA*) 8.5 Gm Hfa.aer.ad, 2 PUFF INH Q4, #1 INHALER Prov:CATHY CARDOSO PA-C 12/31/15 Albuterol Sulfate* (Ventolin HFA*) 18 Gm Hfa.aer.ad, 2 PUFF INHALATION Q4H, #2 INHALER Prov:CIPRIANO TURCIOS DO 12/18/15 Albuterol Sulfate* (Proair HFA*) 8.5 Gm Hfa.aer.ad, 2 PUFF INH Q4, #1 INHALER Prov:STANTON ROBERTSON DO 11/30/15 Allergies Allergies: Coded Allergies: No Known Allergy (Unverified , 01/03/17) PMhx/Soc Medical and Surgical Hx: pt denies Surgical Hx History of Surgery: No Anesthesia Reaction: No Hx Neurological Disorder: No Hx Respiratory Disorders: Yes (Asthma on Qvar) Hx Cardiac Disorders: No Hx Psychiatric Problems: No Hx Miscellaneous Medical Probl: No Hx Alcohol Use: Yes (occasional) Hx Substance Use: Yes (Had edible marijuana before) Hx Tobacco Use: No Smoking Status: Never smoker FmHx Family History: No diabetes Physical Exam Vitals Vital Signs Date Time Temp Pulse Resp B/P Pulse Ox O2 Delivery O2 Flow Rate FiO2 01/03/17 16:06 98.2 66 18 120/67 100 Physical Exam GENERAL: Well-developed, well-nourished male. Appears in no acute distress. Speaking in full sentences. No abdominal retractions, no nasal flaring, no tripoding. HEAD: Normocephalic, atraumatic. EYES: Pupils are equally reactive bilaterally. EOMs grossly intact. No conjunctival erythema. ENT: Moist mucous membranes. No uvula deviation. No kissing tonsils. NECK: Supple. No meningismus. Normal range of motion of the neck. LUNGS: Clear to auscultation bilaterally. No rhonchi, wheezing, rales or coarse breath sounds. HEART: Regular rate and rhythm. No murmurs, rubs or gallops. EXTREMITIES: Equal pulses bilaterally. No peripheral clubbing, cyanosis or edema. No unilateral leg swelling. NEUROLOGIC: Alert and oriented. Moving all four extremities without any difficulty. Normal speech. Steady gait. SKIN: Normal color. Warm and dry. No rashes or lesions. Procedures/MDM MEDICAL DECISION MAKING: Patient is a 27-year-old male who presents to the emergency department for medication refill. Patient requesting medication refill of Qvar and albuterol inhalers. vital signs were reviewed. Patient is afebrile. Patient was not hypoxic. Patient was hemodynamically stable. Patient denies any fevers, chills , cough, shortness of breath or wheezing at this time. Patient will be given refills of both his inhalers. Patient was advised to follow-up with his primary care physician for any additional refills he may need. Low suspicion for URI, asthma exacerbation or status asthmaticus PRESCRIPTION: 1. Albuterol 2. Q Hemalatha 40 inhaler, 7.3 g inhaler, 1 puff INH BID #1, RF= 0. This prescription was handwritten given that it was not found in the formulary. DISCHARGE: At this time, patient is stable for discharge and outpatient management. I have instructed the patient to follow-up with his/her primary care physician in 1-2 days. I have discussed with the patient the possibility of needing to see a specialist for further workup and imaging studies if symptoms persist. I have instructed the patient to promptly return to the ER for any new or worsening symptoms including increased pain, fever, nausea, vomiting, weakness or LOC. The patient and/or family expressed understanding of and agreement with this plan. All questions were answered. Home care instructions were provided. Departure Diagnosis: Primary Impression: Encounter for medication refill Condition: Stable Patient Instructions: Taking Medicine Safely Referrals: [facility] YOU HAVE RECEIVED A MEDICAL SCREENING EXAM AND THE RESULTS INDICATE THAT YOU DO NOT HAVE A CONDITION THAT REQUIRES URGENT TREATMENT IN THE EMERGENCY DEPARTMENT. FURTHER EVALUATION AND TREATMENT OF YOUR CONDITION CAN WAIT UNTIL YOU ARE SEEN IN YOUR DOCTORS OFFICE WITHIN THE NEXT 1-2 DAYS. IT IS YOUR RESPONSIBILITY TO MAKE AN APPOINTMENT FOR FOLOW-UP CARE. IF YOU HAVE A PRIMARY DOCTOR --you should call your primary doctor and schedule an appointment IF YOU DO NOT HAVE A PRIMARY DOCTOR YOU CAN CALL OUR PHYSICIAN REFERRAL HOTLINE AT IF YOU CAN NOT AFFORD TO SEE A PHYSICIAN YOU CAN CHOSE FROM THE FOLLOWING [facility] [address] [facility] [address] [facility] [address] [facility] [address] [facility] [facility] [address] [facility] [facility] [address] [facility]. [facility] YOU HAVE RECEIVED A MEDICAL SCREENING EXAM AND THE RESULTS INDICATE THAT YOU DO NOT HAVE A CONDITION THAT REQUIRES URGENT TREATMENT IN THE EMERGENCY DEPARTMENT. FURTHER EVALUATION AND TREATMENT OF YOUR CONDITION CAN WAIT UNTIL YOU ARE SEEN IN YOUR DOCTORS OFFICE WITHIN THE NEXT 1-2 DAYS. IT IS YOUR RESPONSIBILITY TO MAKE AN APPOINTMENT FOR FOLOW-UP CARE. IF YOU HAVE A PRIMARY DOCTOR --you should call your primary doctor and schedule and appointment IF YOU DO NOT HAVE A PRIMARY DOCTOR YOU CAN CALL OUR PHYSICIAN REFERRAL HOTLINE AT . IF YOU CAN NOT AFFORD TO SEE A PHYSICIAN YOU CAN CHOSE FROM THE FOLLOWING [facility]: [facility] [address] [place] [address] [facility] [address] [place] [address] [facility] [address] [place] [address] Additional Instructions: Call your primary care doctor TOMORROW for an appointment during the next 1-2 days.See the doctor sooner or return here if your condition worsens before your appointment time. Two prescriptions given: 1. Albuterol 8.5 gm HFA 2. Q Hemalatha 7.3 gm Inha FRANSISCO DOWLING PA-C Jan 03, 2017 17:21
== END 2017-01-03 17:25 | disposition home or self-care (01) ==
LOC: FTE 15:41
DX: Z76.0 Encounter for issue of repeat prescription (principal); J45.909 Unspecified asthma, uncomplicated
CPT/HCPCS: 99281

== ENCOUNTER 2017-02-07 06:10 | Emergency (ER) | payer OTHER ==
[~2017-02-07] VITALS: Ht 193 cm; Wt 87.5 kg
[2017-02-07 06:20] VITALS: Ht 193 cm; Wt 87.5 kg
[2017-02-07] MEDS ORDERED: predniSONE 20 MG TAB PO STA (06:50)
[2017-02-07] MEDS ORDERED: ALBUTEROL 0.083% (NEB) 2.5 MG/3 ML AMP NEB STA (06:50)
[2017-02-07] MEDS ORDERED: IPRATROPIUM (NEB) 0.5 MG/2.5 ML AMP NEB STA (06:50)
--- NOTE | 2017-02-07 07:23 | ERD ---
ER Documentation Chief Complaint Date/Time DATE: 02/07/17 TIME: 07:19 Chief Complaint Asthma Attack at 0300. run out of meds HPI Patient is a 27-year-old male with a history of asthma who presents emergency department for concerns of "an asthma attack". Patient states for the last week and a half he has been having intermittent episodes of wheezing. Patient has been using his inhaler every 4-6 hours. Patient states last night he started wheezing around 3 AM. Patient states he uses inhaler last prior to arrival. Patient denies any fever, chills, chest pain, shortness of breath, nausea, vomiting or LOC. Patient is requesting refill of his inhaler at this time. ROS All systems reviewed and are negative except as per history of present illness. Medications Home Meds Active Scripts Albuterol Sulfate* (Proair HFA*) 8.5 Gm Hfa.aer.ad, 2 PUFF INH Q4, #1 INHALER Prov:FRANSISCO DOWLING PA-C 02/07/17 Prednisone* (Prednisone*) 20 Mg Tab, 40 MG PO DAILY for 4 Days, TAB Prov:FRANSISCO DOWLING PA-C 02/07/17 Albuterol Sulfate* (Proair HFA*) 8.5 Gm Hfa.aer.ad, 2 PUFF INH Q6, #1 INHALER Prov:FRANSISCO DOWLING PA-C 01/03/17 Albuterol Sulfate* (Proair HFA*) 8.5 Gm Hfa.aer.ad, 2 PUFF INH Q4H Y for WHEEZING AND SOB, #1 INHALER Prov:OMI CAO PA-C 12/10/16 Beclomethasone Dip* (Qvar 40*) 7.3 Gm Inha, 1 PUFF INH BID, #1 INHALER Prov:WILLAM MCPHERSON PA-C 10/12/16 Albuterol Sulfate* (Proair HFA*) 8.5 Gm Hfa.aer.ad, 2 PUFF INH Q4, #1 INHALER Prov:WILLAM MCPHERSON PA-C 10/12/16 Prednisone* (Prednisone*) 20 Mg Tab, 40 MG PO DAILY for 4 Days, TAB Prov:WILLAM MCPHERSON PA-C 10/12/16 Albuterol Sulfate* (Proair HFA*) 8.5 Gm Hfa.aer.ad, 2 PUFF INH Q6H Y for COUGH, #1 INHALER Prov:JOHN ARREAGA MD 09/20/16 Prednisone (Prednisone) 20 Mg Tablet, 20 MG PO BID, #8 TAB Prov:JOHN ARREAGA MD 09/20/16 Albuterol Sulfate* (Ventolin HFA*) 18 Gm Hfa.aer.ad, 2 PUFF INHALATION Q4H, #1 INHALER Prov:AGUSTINA GOMEZ MD 08/11/16 Prednisone* (Prednisone*) 20 Mg Tab, 40 MG PO DAILY for 5 Days, TAB Prov:AGUSTINA GOMEZ MD 08/11/16 Albuterol Sulfate* (Ventolin HFA*) 18 Gm Hfa.aer.ad, 2 PUFF INHALATION Q4H, #2 INHALER Prov:CIPRIANO TURCIOS DO 06/15/16 Albuterol Sulfate* (Ventolin HFA*) 18 Gm Hfa.aer.ad, 2 PUFF INHALATION Q4H, #1 INHALER Prov:AGUSTINA GOMEZ MD 05/13/16 Albuterol Sulfate* (Ventolin HFA*) 18 Gm Hfa.aer.ad, 2 PUFF INHALATION Q4H, #1 INHALER Prov:EDINSON TEIXEIRA 05/01/16 Prednisone* (Prednisone*) 20 Mg Tab, 40 MG PO DAILY for 4 Days, TAB Prov:AGUSTINA GOMEZ MD 03/04/16 Albuterol Sulfate* (Ventolin HFA*) 18 Gm Hfa.aer.ad, 2 PUFF INHALATION Q4H, #1 INHALER 2 Refills Prov:AGUSTINA GOMEZ MD 03/04/16 Beclomethasone Dip* (Qvar 40*) 7.3 Gm Inha, 1 PUFF INH BID, #1 INHALER Prov:AGUSTINA GOMEZ MD 03/04/16 Benzonatate* (Tessalon Perle*) 100 Mg Capsule, 100 MG PO Q8H Y for COUGH, #30 CAP Prov:JESSICA MACIAS DO 01/27/16 Prednisone* (Prednisone*) 20 Mg Tab, 40 MG PO DAILY for 4 Days, #15 TAB take 40 mg for 4 days, then 30 mg for 3 days. Prov:JESSICA MACIAS DO 01/27/16 Fluticasone Propionate* (Flovent* HFA 110) 12 Gm Inha, 1 PUFF INHALATION BID, # 1 INHALER Prov:JESSICA MACIAS DO 01/27/16 Albuterol Sulfate* (Proair HFA*) 8.5 Gm Hfa.aer.ad, 2 PUFF INH Q4H Y for WHEEZING AND SOB, #1 INHALER Prov:JESSICA MACIAS DO 01/27/16 Albuterol Sulfate* (Proair HFA*) 8.5 Gm Hfa.aer.ad, 2 PUFF INH Q4, #1 INHALER Prov:YVAN OLIVIER PA-C 01/15/16 Prednisone* (Prednisone*) 20 Mg Tab, 40 MG PO DAILY for 4 Days, TAB Prov:CATHY CARDOSO PA-C 12/31/15 Albuterol Sulfate* (Proair HFA*) 8.5 Gm Hfa.aer.ad, 2 PUFF INH Q4, #1 INHALER Prov:CATHY CARDOSO PA-C 12/31/15 Albuterol Sulfate* (Ventolin HFA*) 18 Gm Hfa.aer.ad, 2 PUFF INHALATION Q4H, #2 INHALER Prov:CIPRIANO TURCIOS DO 12/18/15 Albuterol Sulfate* (Proair HFA*) 8.5 Gm Hfa.aer.ad, 2 PUFF INH Q4, #1 INHALER Prov:STANTON ROBERTSON DO 11/30/15 Allergies Allergies: Coded Allergies: No Known Allergy (Unverified , 01/03/17) PMhx/Soc History of Surgery: No Anesthesia Reaction: No Hx Neurological Disorder: No Hx Respiratory Disorders: Yes (Asthma ) Hx Cardiac Disorders: No Hx Psychiatric Problems: No Hx Miscellaneous Medical Probl: No Hx Alcohol Use: Yes (occasional) Hx Substance Use: Yes (marijuana ) Hx Tobacco Use: Yes (cigarette) Physical Exam Vitals Vital Signs Date Time Temp Pulse Resp B/P Pulse Ox O2 Delivery O2 Flow Rate FiO2 02/07/17 07:22 69 24 97 21 02/07/17 06:20 98.5 69 24 120/73 97 Physical Exam GENERAL: Well-developed, well-nourished male. Appears in no acute distress. Speaking in full sentences. HEAD: Normocephalic, atraumatic. EYES: Pupils are equally reactive bilaterally. EOMs grossly intact. No conjunctival erythema. ENT: Moist mucous membranes. No uvula deviation. No kissing tonsils. NECK: Supple. No meningismus. Normal range of motion of the neck. LUNG: Slight wheezing ausculated in lower lobes. No abdominal retractions, nasal flaring or tripoding noted. HEART: Regular rate and rhythm. No murmurs, rubs or gallops. EXTREMITIES: Equal pulses bilaterally. No peripheral clubbing, cyanosis or edema. No unilateral leg swelling. NEUROLOGIC: Alert and oriented. Moving all four extremities without any difficulty. Normal speech. Steady gait. SKIN: Normal color. Warm and dry. No rashes or lesions. Results 24 hrs Current Medications Medications (Trade) Dose Ordered Sig/Terence Route PRN Reason Start Time Stop Time Status Last Admin Dose Admin Albuterol (Proventil 0.083% (Neb)) 5 mg ONCE STAT NEB 02/07/17 06:50 02/07/17 06:51 DC 02/07/17 07:18 Ipratropium [place] (Atrovent 0.02% (Neb)) 0.5 mg ONCE STAT NEB 02/07/17 06:50 02/07/17 06:51 DC 02/07/17 07:19 Prednisone (Prednisone) 40 mg ONCE STAT PO 02/07/17 06:50 02/07/17 06:51 DC 02/07/17 07:11 Procedures/MDM ED COURSE: The patient was stable throughout ED course. I kept the patient and/or family informed of laboratory and diagnostic imaging results throughout the ED course. PROCEDURES: None. MEDICATIONS GIVEN: Albuterol/ ipratropium breathing treatment, Prednisone Patient tolerated medication well with no adverse reactions. MEDICAL DECISION MAKING: This is a 27-year-old male with history of asthma presents emergency department for concern of an asthma exacerbation. Patient states over the last 1.5 weeks he has had intermittent episodes of wheezing which became worse last night. Vital signs were reviewed. Patient was afebrile. Patient was not hypoxic. ENT exam was normal. Lung exam initially revealed some wheezing. Patient was given a breathing treatment and prednisone here in emergency department. Patient had improvement in lung sounds upon reexamination. Given these findings, the patients presentation is most consistent with asthma exacerbation. Low suspicion for acute bronchitis, pneumonia, meningitis, sinusitis, strep pharyngitis, epiglottitis or peritonsillar abscess. Low suspicion for status asthmaticus, respiratory distress, respiratory failure. PRESCRIPTIONS: Prednisone, albuterol DISCHARGE: At this time, patient is stable for discharge and outpatient management. Smoking cessation advised. I have instructed the patient to follow-up with his/ her primary care physician in 1-2 days. I have instructed the patient to promptly return to the ER for any new or worsening symptoms including increased pain, swelling, fever, nausea, vomiting, weakness or difficulty breathing. The patient and/or family expressed understanding of and agreement with this plan. All questions were answered. Home care instructions were provided. Departure Diagnosis: Primary Impression: Asthma with acute exacerbation Asthma severity: unspecified severity Qualified Code: J45.901 - Asthma with acute exacerbation, unspecified asthma severity Condition: Stable Patient Instructions: Asthma Medications Additional Instructions: Call your primary care doctor TOMORROW for an appointment during the next 1-2 days.See the doctor sooner or return here if your condition worsens before your appointment time. FRANSISCO DOWLING PA-C Feb 07, 2017 07:23
[2017-02-07] MEDS ORDERED: ALBU8.5H3 INH (07:28)
[2017-02-07] MEDS ORDERED: PRED20TA PO (07:28)
== END 2017-02-07 08:17 | disposition home or self-care (01) ==
LOC: FTE 06:10
DX: J45.901 Unspecified asthma with (acute) exacerbation (principal); F17.210 Nicotine dependence, cigarettes, uncomplicated
CPT/HCPCS: 94664; J7512; Z7502; Z7610

== ENCOUNTER 2017-02-27 16:21 | Emergency (ER) | payer OTHER ==
[~2017-02-27] VITALS: Ht 193 cm; Wt 88.5 kg
[2017-02-27 16:25] VITALS: Ht 193 cm; Wt 88.5 kg
[2017-02-27] MEDS ORDERED: BEN25 PO (17:44)
[2017-02-27] MEDS ORDERED: ALBU8.5H3 INH (17:44)
--- NOTE | 2017-02-27 18:01 | ERD ---
ER Documentation Chief Complaint Date/Time DATE: 02/27/17 TIME: 17:58 Chief Complaint rash since last night HPI This is a 27-year-old male presenting to emergency department with generalized rash since last night. Patient states yesterday he developed itchy hives all over his body. Patient states he is allergic to shellfish however he does not recall ingesting this. Patient denies any new food, medication, lotion or detergent. Patient states hives disappeared without medication and reappeared later. Currently patient denies rash or itching. No facial swelling. Denies shortness of breath or difficult breathing. No wheezing. Patient does have history of asthma and is requesting refill of his pro-air inhaler. ROS All systems reviewed and are negative except as per history of present illness. Medications Home Meds Active Scripts Diphenhydramine Hcl* (Benadryl*) 25 Mg Cap, 25 MG PO Q6, #10 CAP Prov:CESARIO MARKHAM NP 02/27/17 Albuterol Sulfate* (Proair HFA*) 8.5 Gm Hfa.aer.ad, 2 PUFF INH Q4, #1 INHALER Prov:CESARIO MARKHAM NP 02/27/17 Albuterol Sulfate* (Proair HFA*) 8.5 Gm Hfa.aer.ad, 2 PUFF INH Q4, #1 INHALER Prov:FRANSISCO DOWLING PA-C 02/07/17 Prednisone* (Prednisone*) 20 Mg Tab, 40 MG PO DAILY for 4 Days, TAB Prov:FRANSISCO DOWLING PA-C 02/07/17 Albuterol Sulfate* (Proair HFA*) 8.5 Gm Hfa.aer.ad, 2 PUFF INH Q6, #1 INHALER Prov:FRANSISCO DOWLING PA-C 01/03/17 Albuterol Sulfate* (Proair HFA*) 8.5 Gm Hfa.aer.ad, 2 PUFF INH Q4H Y for WHEEZING AND SOB, #1 INHALER Prov:OMI CAO PA-C 12/10/16 Beclomethasone Dip* (Qvar 40*) 7.3 Gm Inha, 1 PUFF INH BID, #1 INHALER Prov:WILLAM MCPHERSON PA-C 10/12/16 Albuterol Sulfate* (Proair HFA*) 8.5 Gm Hfa.aer.ad, 2 PUFF INH Q4, #1 INHALER Prov:WILLAM MCPHERSON PA-C 10/12/16 Prednisone* (Prednisone*) 20 Mg Tab, 40 MG PO DAILY for 4 Days, TAB Prov:WILLAM MCPHERSON PA-C 10/12/16 Albuterol Sulfate* (Proair HFA*) 8.5 Gm Hfa.aer.ad, 2 PUFF INH Q6H Y for COUGH, #1 INHALER Prov:JOHN ARREAGA MD 09/20/16 Prednisone (Prednisone) 20 Mg Tablet, 20 MG PO BID, #8 TAB Prov:JOHN ARREAGA MD 09/20/16 Albuterol Sulfate* (Ventolin HFA*) 18 Gm Hfa.aer.ad, 2 PUFF INHALATION Q4H, #1 INHALER Prov:AGUSTINA GOMEZ MD 08/11/16 Prednisone* (Prednisone*) 20 Mg Tab, 40 MG PO DAILY for 5 Days, TAB Prov:AGUSTINA GOMEZ MD 08/11/16 Albuterol Sulfate* (Ventolin HFA*) 18 Gm Hfa.aer.ad, 2 PUFF INHALATION Q4H, #2 INHALER Prov:CIPRIANO TURCIOS DO 06/15/16 Albuterol Sulfate* (Ventolin HFA*) 18 Gm Hfa.aer.ad, 2 PUFF INHALATION Q4H, #1 INHALER Prov:AGUSTINA GOMEZ MD 05/13/16 Albuterol Sulfate* (Ventolin HFA*) 18 Gm Hfa.aer.ad, 2 PUFF INHALATION Q4H, #1 INHALER Prov:EDINSON TEIXEIRA 05/01/16 Prednisone* (Prednisone*) 20 Mg Tab, 40 MG PO DAILY for 4 Days, TAB Prov:AGUSTINA GOMEZ MD 03/04/16 Albuterol Sulfate* (Ventolin HFA*) 18 Gm Hfa.aer.ad, 2 PUFF INHALATION Q4H, #1 INHALER 2 Refills Prov:AGUSTINA GOMEZ MD 03/04/16 Beclomethasone Dip* (Qvar 40*) 7.3 Gm Inha, 1 PUFF INH BID, #1 INHALER Prov:AGUSTINA GOMEZ MD 03/04/16 Benzonatate* (Tessalon Perle*) 100 Mg Capsule, 100 MG PO Q8H Y for COUGH, #30 CAP Prov:JESSICA MACIAS 01/27/16 Prednisone* (Prednisone*) 20 Mg Tab, 40 MG PO DAILY for 4 Days, #15 TAB take 40 mg for 4 days, then 30 mg for 3 days. Prov:JESSICA MACIAS 01/27/16 Fluticasone Propionate* (Flovent* HFA 110) 12 Gm Inha, 1 PUFF INHALATION BID, # 1 INHALER Prov:[facility]LEEN,[facility] 01/27/16 Albuterol Sulfate* (Proair HFA*) 8.5 Gm Hfa.aer.ad, 2 PUFF INH Q4H Y for WHEEZING AND SOB, #1 INHALER Prov:COLLEENJESSICA FOUNTAIN 01/27/16 Albuterol Sulfate* (Proair HFA*) 8.5 Gm Hfa.aer.ad, 2 PUFF INH Q4, #1 INHALER Prov:YVAN OLIVIER PA-C 01/15/16 Prednisone* (Prednisone*) 20 Mg Tab, 40 MG PO DAILY for 4 Days, TAB Prov:CATHY CARDOSO PA-C 12/31/15 Albuterol Sulfate* (Proair HFA*) 8.5 Gm Hfa.aer.ad, 2 PUFF INH Q4, #1 INHALER Prov:CATHY CARDOSO PA-C 12/31/15 Albuterol Sulfate* (Ventolin HFA*) 18 Gm Hfa.aer.ad, 2 PUFF INHALATION Q4H, #2 INHALER Prov:CIPRIANO TURCIOS DO 12/18/15 Albuterol Sulfate* (Proair HFA*) 8.5 Gm Hfa.aer.ad, 2 PUFF INH Q4, #1 INHALER Prov:STANTON ROBERTSON DO 11/30/15 Allergies Allergies: Coded Allergies: No Known Allergy (Unverified , 01/03/17) PMhx/Soc History of Surgery: No Anesthesia Reaction: No Hx Neurological Disorder: No Hx Respiratory Disorders: Yes (Asthma ) Hx Cardiac Disorders: No Hx Psychiatric Problems: No Hx Miscellaneous Medical Probl: No Hx Alcohol Use: Yes (occasional) Hx Substance Use: Yes (marijuana ) Hx Tobacco Use: Yes (cigarette) Smoking Status: Current every day smoker Physical Exam Vitals Vital Signs Date Time Temp Pulse Resp B/P Pulse Ox O2 Delivery O2 Flow Rate FiO2 02/27/17 16:25 98.0 89 18 106/55 96 Physical Exam Const: No acute distress, alert Head: Atraumatic no facial swelling Eyes: Normal Conjunctiva ENT: Normal External Ears, Nose and Mouth. No erythema or exudates posterior pharynx. No peritonsillar abscess. Neck: Full range of motion..~ No meningismus. Resp: Clear to auscultation bilaterally. No wheezing, rhonchi or crackles. No stridor or labored breathing. No intercostal retractions. Patient is talking in complete sentences. Cardio: Regular rate and rhythm, no murmurs Abd: Soft, non tender, non distended. Normal bowel sounds Skin: No petechiae or rashes Back: No midline or flank tenderness Ext: No cyanosis, or edema Neur: Awake and alert Psych: Normal Mood and Affect Procedures/MDM Name: This is a 27-year-old male presenting to emerge department with allergic reaction yesterday. Patient states yesterday he had hives and generalized pruritus. Currently patient does not have a rash. Physical exam is overall unremarkable. No signs or symptoms of respiratory distress. No signs of angioedema. Vital signs are stable. Oxygen saturation 96% on room air. Respirations 18/min. Patient is afebrile and vital signs are stable. Low suspicion for anaphylactic reaction or serious bacterial infection. Patient is appropriate for outpatient management will be given prescription for ProAir inhaler and Benadryl. Instructed patient to follow-up with primary care provider next 2-3 days for reassessment and additional management. Return to ED for any high fever, chest pain, difficulty breathing, shortness breath, wheezing, vomiting, diarrhea, abdominal pain or any new or worsening symptoms. Patient verbalizes understanding. All questions answered at discharge. Disclaimer: Inadvertent spelling and grammatical errors are likely due to EHR/ dictation software use and do not reflect on the overall quality of patient care. Also, please note that the electronic time recorded on this note does not necessarily reflect the actual time of the patient encounter. Departure Diagnosis: Primary Impression: Rash and other nonspecific skin eruption Condition: Stable Patient Instructions: Self-Care for Skin Rashes, Allergic Reaction, Other ( Local) Referrals: [facility], [facility] YOU HAVE RECEIVED A MEDICAL SCREENING EXAM AND THE RESULTS INDICATE THAT YOU DO NOT HAVE A CONDITION THAT REQUIRES URGENT TREATMENT IN THE EMERGENCY DEPARTMENT. FURTHER EVALUATION AND TREATMENT OF YOUR CONDITION CAN WAIT UNTIL YOU ARE SEEN IN YOUR DOCTORS OFFICE WITHIN THE NEXT 1-2 DAYS. IT IS YOUR RESPONSIBILITY TO MAKE AN APPOINTMENT FOR FOLOW-UP CARE. IF YOU HAVE A PRIMARY DOCTOR --you should call your primary doctor and schedule an appointment IF YOU DO NOT HAVE A PRIMARY DOCTOR YOU CAN CALL OUR PHYSICIAN REFERRAL HOTLINE AT IF YOU CAN NOT AFFORD TO SEE A PHYSICIAN YOU CAN CHOSE FROM THE FOLLOWING [facility] [address] [facility]. [facility] [address] [facility]. [facility] [address] [facility] [address] [facility] [address] [facility]. [facility] [address] [facility]. [facility] YOU HAVE RECEIVED A MEDICAL SCREENING EXAM AND THE RESULTS INDICATE THAT YOU DO NOT HAVE A CONDITION THAT REQUIRES URGENT TREATMENT IN THE EMERGENCY DEPARTMENT. FURTHER EVALUATION AND TREATMENT OF YOUR CONDITION CAN WAIT UNTIL YOU ARE SEEN IN YOUR DOCTORS OFFICE WITHIN THE NEXT 1-2 DAYS. IT IS YOUR RESPONSIBILITY TO MAKE AN APPOINTMENT FOR FOLOW-UP CARE. IF YOU HAVE A PRIMARY DOCTOR --you should call your primary doctor and schedule and appointment IF YOU DO NOT HAVE A PRIMARY DOCTOR YOU CAN CALL OUR PHYSICIAN REFERRAL HOTLINE AT . IF YOU CAN NOT AFFORD TO SEE A PHYSICIAN YOU CAN CHOSE FROM THE FOLLOWING [facility] INSTITUTIONS: [facility] [address] [place] [address] [facility] [address] [place] [address] [facility] + [facility] [address] [place] [address] Additional Instructions: Call your primary care doctor TOMORROW for an appointment during the next 2-3 days.See the doctor sooner or return here if your condition worsens before your appointment time. Return to ED for any high fever, chest pain, difficulty breathing, shortness breath, wheezing, vomiting, diarrhea, abdominal pain or any new or worsening symptoms. CESARIO MARKHAM NP Feb 27, 2017 18:01
== END 2017-02-27 18:43 | disposition home or self-care (01) ==
LOC: FTE 16:21
DX: R21 Rash and other nonspecific skin eruption (principal); J45.909 Unspecified asthma, uncomplicated; F17.210 Nicotine dependence, cigarettes, uncomplicated
CPT/HCPCS: 99283

== ENCOUNTER 2017-04-05 15:17 | Emergency (ER) | payer OTHER ==
[~2017-04-05] VITALS: Ht 157.5 cm; Wt 88.2 kg
[~2017-04-05 15:17] MED LIST changes: +BEN25 PO
[2017-04-05 15:23] VITALS: Ht 157.5 cm; Wt 88.2 kg
[2017-04-05] MEDS ORDERED: FLOV110 INHALATION (15:52)
[2017-04-05] MEDS ORDERED: ALBU8.5H3 INH (15:53)
--- NOTE | 2017-04-07 06:27 | ERD ---
ER Documentation Chief Complaint Chief Complaint Complains of SOB Hx of Asthma HPI This is a 27-year-old male presents to the ER requesting a refill of his asthma medication. Patient is currently asymptomatic, however he states that over the last few days he has been using his asthma inhaler a lot more, and ran out. Patient does not have any cough or cold symptoms. He has been using his albuterol inhaler about 4-6 times a day. He denies any fevers or chills. He denies any chest pain or shortness of breath. ROS 12 point review of systems was done, all negative except per HPI. Medications Home Meds Active Scripts Albuterol Sulfate* (Proair HFA*) 8.5 Gm Hfa.aer.ad, 2 PUFF INH Q4, #1 INHALER Prov:EDINSON TEIXEIRA 04/05/17 Fluticasone Propionate* (Flovent* HFA 110) 12 Gm Inha, 1 PUFF INHALATION BID, # 1 INHALER Prov:EDINSON TEIXEIRA 04/05/17 Albuterol Sulfate* (Ventolin HFA*) 18 Gm Hfa.aer.ad, 2 PUFF INHALATION Q4H, #1 INHALER Prov:MARSRENYPENNY 03/18/17 Diphenhydramine Hcl* (Benadryl*) 25 Mg Cap, 25 MG PO Q6, #10 CAP Prov:CESARIO MARKHAM NP 02/27/17 Albuterol Sulfate* (Proair HFA*) 8.5 Gm Hfa.aer.ad, 2 PUFF INH Q4, #1 INHALER Prov:CESARIO MARKHAM NP 02/27/17 Albuterol Sulfate* (Proair HFA*) 8.5 Gm Hfa.aer.ad, 2 PUFF INH Q4, #1 INHALER Prov:FRANSISCO DOWLING PA-C 02/07/17 Prednisone* (Prednisone*) 20 Mg Tab, 40 MG PO DAILY for 4 Days, TAB Prov:FRANSISCO DOWLING PA-C 02/07/17 Albuterol Sulfate* (Proair HFA*) 8.5 Gm Hfa.aer.ad, 2 PUFF INH Q6, #1 INHALER Prov:FRANSISCO DOWLING PA-C 01/03/17 Albuterol Sulfate* (Proair HFA*) 8.5 Gm Hfa.aer.ad, 2 PUFF INH Q4H Y for WHEEZING AND SOB, #1 INHALER Prov:OMI CAO PA-C 12/10/16 Beclomethasone Dip* (Qvar 40*) 7.3 Gm Inha, 1 PUFF INH BID, #1 INHALER Prov:WILLAM MCPHERSON PA-C 10/12/16 Albuterol Sulfate* (Proair HFA*) 8.5 Gm Hfa.aer.ad, 2 PUFF INH Q4, #1 INHALER Prov:WILLAM MCPHERSON PA-C 10/12/16 Prednisone* (Prednisone*) 20 Mg Tab, 40 MG PO DAILY for 4 Days, TAB Prov:WILLAM MCPHERSON PA-C 10/12/16 Albuterol Sulfate* (Proair HFA*) 8.5 Gm Hfa.aer.ad, 2 PUFF INH Q6H Y for COUGH, #1 INHALER Prov:JOHN ARREAGA MD 09/20/16 Prednisone (Prednisone) 20 Mg Tablet, 20 MG PO BID, #8 TAB Prov:JOHN ARREAGA MD 09/20/16 Albuterol Sulfate* (Ventolin HFA*) 18 Gm Hfa.aer.ad, 2 PUFF INHALATION Q4H, #1 INHALER Prov:AGUSTINA GOMEZ MD 08/11/16 Prednisone* (Prednisone*) 20 Mg Tab, 40 MG PO DAILY for 5 Days, TAB Prov:AGUSTINA GOMEZ MD 08/11/16 Albuterol Sulfate* (Ventolin HFA*) 18 Gm Hfa.aer.ad, 2 PUFF INHALATION Q4H, #2 INHALER Prov:CIPRIANO TURCIOS DO 06/15/16 Albuterol Sulfate* (Ventolin HFA*) 18 Gm Hfa.aer.ad, 2 PUFF INHALATION Q4H, #1 INHALER Prov:AGUSTINA GOMEZ MD 05/13/16 Albuterol Sulfate* (Ventolin HFA*) 18 Gm Hfa.aer.ad, 2 PUFF INHALATION Q4H, #1 INHALER Prov:EDINSON TEIXEIRA 05/01/16 Prednisone* (Prednisone*) 20 Mg Tab, 40 MG PO DAILY for 4 Days, TAB Prov:AGUSTINA GOMEZ MD 03/04/16 Albuterol Sulfate* (Ventolin HFA*) 18 Gm Hfa.aer.ad, 2 PUFF INHALATION Q4H, #1 INHALER 2 Refills Prov:AGUSTINA GOMEZ MD 03/04/16 Beclomethasone Dip* (Qvar 40*) 7.3 Gm Inha, 1 PUFF INH BID, #1 INHALER Prov:AGUSTINA GOMEZ MD 03/04/16 Benzonatate* (Tessalon Perle*) 100 Mg Capsule, 100 MG PO Q8H Y for COUGH, #30 CAP Prov:JESSICA MACIAS 01/27/16 Prednisone* (Prednisone*) 20 Mg Tab, 40 MG PO DAILY for 4 Days, #15 TAB take 40 mg for 4 days, then 30 mg for 3 days. Prov:JESSICA MACIAS 01/27/16 Fluticasone Propionate* (Flovent* HFA 110) 12 Gm Inha, 1 PUFF INHALATION BID, # 1 INHALER Prov:JESSICA MACIAS 01/27/16 Albuterol Sulfate* (Proair HFA*) 8.5 Gm Hfa.aer.ad, 2 PUFF INH Q4H Y for WHEEZING AND SOB, #1 INHALER Prov:JESSICA MACIAS 01/27/16 Albuterol Sulfate* (Proair HFA*) 8.5 Gm Hfa.aer.ad, 2 PUFF INH Q4, #1 INHALER Prov:YVAN OLIVIER PA-C 01/15/16 Prednisone* (Prednisone*) 20 Mg Tab, 40 MG PO DAILY for 4 Days, TAB Prov:CATHY CARDOSO PA-C 12/31/15 Albuterol Sulfate* (Proair HFA*) 8.5 Gm Hfa.aer.ad, 2 PUFF INH Q4, #1 INHALER Prov:CATHY CARDOSO PA-C 12/31/15 Albuterol Sulfate* (Ventolin HFA*) 18 Gm Hfa.aer.ad, 2 PUFF INHALATION Q4H, #2 INHALER Prov:CIPRIANO TURCIOS DO 12/18/15 Albuterol Sulfate* (Proair HFA*) 8.5 Gm Hfa.aer.ad, 2 PUFF INH Q4, #1 INHALER Prov:STANTON ROBERTSON DO 11/30/15 Allergies Allergies: Coded Allergies: No Known Allergy (Unverified , 01/03/17) PMhx/Soc Medical and Surgical Hx: pt denies Medical Hx, pt denies Surgical Hx History of Surgery: No Anesthesia Reaction: No Hx Neurological Disorder: No Hx Respiratory Disorders: Yes (Asthma ) Hx Cardiac Disorders: No Hx Psychiatric Problems: No Hx Miscellaneous Medical Probl: No Hx Alcohol Use: No Hx Substance Use: Yes (Marijuana) Hx Tobacco Use: No Smoking Status: Never smoker Physical Exam Vitals Vital Signs Date Time Temp Pulse Resp B/P Pulse Ox O2 Delivery O2 Flow Rate FiO2 04/05/17 15:23 97.5 80 20 130/60 98 Physical Exam GENERAL: The patient is well developed and appropriate for usual state of health , in no apparent distress. HEENT: Atraumatic. CHEST: Clear to auscultation bilaterally. There are no rales, wheezes or rhonchi. HEART: Regular rate and rhythm. No murmurs, clicks, rubs or gallops. NEURO: Alert and oriented. SKIN: There is no apparent rash or petechia. The skin is warm and dry. Procedures/MDM Is a 27-year-old female presents to the ER for medication refill, at this time patient is completely asymptomatic. He is not hypoxic or in any respiratory distress. Patient has denied any sort of chest pain or shortness of breath he does have a past medical history of asthma and is using his albuterol inhaler about 4-6 times a day. Patient will be sent with fluticasone letter to be used twice a day for better control of his asthma and his albuterol inhaler to be used the rescue inhaler. He is to follow-up with his primary care doctor within 1-2 days or return to ER sooner if symptoms worsen. My medical decision making shared with the patient he understands and agrees with plan. Departure Diagnosis: Primary Impression: Encounter for medication refill Condition: Stable Patient Instructions: Asthma Medications Additional Instructions: Call your primary care doctor TOMORROW for an appointment during the next 1-2 days.See the doctor sooner or return here if your condition worsens before your appointment time. EDINSON TEIXEIRA Apr 07, 2017 06:27
== END 2017-04-05 16:03 | disposition home or self-care (01) ==
LOC: FTE 15:17
DX: Z76.0 Encounter for issue of repeat prescription (principal); J45.909 Unspecified asthma, uncomplicated
CPT/HCPCS: 99281

== ENCOUNTER 2017-04-13 13:36 | Emergency (ER) | payer OTHER ==
[~2017-04-13] VITALS: Ht 193 cm; Wt 86.0 kg
[2017-04-13 13:39] VITALS: Ht 193 cm; Wt 86.0 kg
[2017-04-13] MEDS ORDERED: ALBU8.5H3 INH (15:40)
--- NOTE | 2017-04-13 20:41 | ERD ---
ER Documentation Chief Complaint Chief Complaint PRESCRIPTION REFILL OF INHALER, LOST PREVIOUS ONE. HPI 27-year-old male patient with a past medical history of asthma presents to the ED complaining of wanting a refill for his inhaler. Reports that he lost the prescription. Denies any active wheezing, shortness of breath, nausea, vomiting , fever, chills, cough. Denies any recent traveling. ROS All systems reviewed and are negative except as per history of present illness. Medications Home Meds Active Scripts Albuterol Sulfate* (Proair HFA*) 8.5 Gm Hfa.aer.ad, 2 PUFF INH Q4, #1 INHALER Prov:WILLAM MCPHERSON PA-C 04/13/17 Albuterol Sulfate* (Proair HFA*) 8.5 Gm Hfa.aer.ad, 2 PUFF INH Q4, #1 INHALER Prov:EDINSON TEIXEIRA 04/05/17 Fluticasone Propionate* (Flovent* HFA 110) 12 Gm Inha, 1 PUFF INHALATION BID, # 1 INHALER Prov:EDINSON TEIXEIRA 04/05/17 Albuterol Sulfate* (Ventolin HFA*) 18 Gm Hfa.aer.ad, 2 PUFF INHALATION Q4H, #1 INHALER Prov:MARSPENNY 03/18/17 Diphenhydramine Hcl* (Benadryl*) 25 Mg Cap, 25 MG PO Q6, #10 CAP Prov:CESARIO MARKHAM NP 02/27/17 Albuterol Sulfate* (Proair HFA*) 8.5 Gm Hfa.aer.ad, 2 PUFF INH Q4, #1 INHALER Prov:CESARIO MARKHAM NP 02/27/17 Albuterol Sulfate* (Proair HFA*) 8.5 Gm Hfa.aer.ad, 2 PUFF INH Q4, #1 INHALER Prov:FRANSISCO DOWLING PA-C 02/07/17 Prednisone* (Prednisone*) 20 Mg Tab, 40 MG PO DAILY for 4 Days, TAB Prov:FRANSISCO DOWLING PA-C 02/07/17 Albuterol Sulfate* (Proair HFA*) 8.5 Gm Hfa.aer.ad, 2 PUFF INH Q6, #1 INHALER Prov:FRANSISCO DOWLING PA-C 01/03/17 Albuterol Sulfate* (Proair HFA*) 8.5 Gm Hfa.aer.ad, 2 PUFF INH Q4H Y for WHEEZING AND SOB, #1 INHALER Prov:OMI CAO PA-C 12/10/16 Beclomethasone Dip* (Qvar 40*) 7.3 Gm Inha, 1 PUFF INH BID, #1 INHALER Prov:WILLAM MCPHERSON PA-C 10/12/16 Albuterol Sulfate* (Proair HFA*) 8.5 Gm Hfa.aer.ad, 2 PUFF INH Q4, #1 INHALER Prov:WILLAM MCPHERSON PA-C 10/12/16 Prednisone* (Prednisone*) 20 Mg Tab, 40 MG PO DAILY for 4 Days, TAB Prov:WILLAM MCPHERSON PA-C 10/12/16 Albuterol Sulfate* (Proair HFA*) 8.5 Gm Hfa.aer.ad, 2 PUFF INH Q6H Y for COUGH, #1 INHALER Prov:JOHN ARREAGA MD 09/20/16 Prednisone (Prednisone) 20 Mg Tablet, 20 MG PO BID, #8 TAB Prov:JOHN ARRAEGA MD 09/20/16 Albuterol Sulfate* (Ventolin HFA*) 18 Gm Hfa.aer.ad, 2 PUFF INHALATION Q4H, #1 INHALER Prov:AGUSTINA GOMEZ MD 08/11/16 Prednisone* (Prednisone*) 20 Mg Tab, 40 MG PO DAILY for 5 Days, TAB Prov:AGUSTINA GOMEZ MD 08/11/16 Albuterol Sulfate* (Ventolin HFA*) 18 Gm Hfa.aer.ad, 2 PUFF INHALATION Q4H, #2 INHALER Prov:CIPRIANO TURCIOS DO 06/15/16 Albuterol Sulfate* (Ventolin HFA*) 18 Gm Hfa.aer.ad, 2 PUFF INHALATION Q4H, #1 INHALER Prov:AGUSTINA GOMEZ MD 05/13/16 Albuterol Sulfate* (Ventolin HFA*) 18 Gm Hfa.aer.ad, 2 PUFF INHALATION Q4H, #1 INHALER Prov:EDINSON TEIXEIRA 05/01/16 Prednisone* (Prednisone*) 20 Mg Tab, 40 MG PO DAILY for 4 Days, TAB Prov:AGUSTINA GOMEZ MD 03/04/16 Albuterol Sulfate* (Ventolin HFA*) 18 Gm Hfa.aer.ad, 2 PUFF INHALATION Q4H, #1 INHALER 2 Refills Prov:AGUSTINA GOMEZ MD 03/04/16 Beclomethasone Dip* (Qvar 40*) 7.3 Gm Inha, 1 PUFF INH BID, #1 INHALER Prov:AGUSTINA GOMEZ MD 03/04/16 Benzonatate* (Tessalon Perle*) 100 Mg Capsule, 100 MG PO Q8H Y for COUGH, #30 CAP Prov:JESSICA MACIAS DO 01/27/16 Prednisone* (Prednisone*) 20 Mg Tab, 40 MG PO DAILY for 4 Days, #15 TAB take 40 mg for 4 days, then 30 mg for 3 days. Prov:JESSICA MACIAS DO 01/27/16 Fluticasone Propionate* (Flovent* HFA 110) 12 Gm Inha, 1 PUFF INHALATION BID, # 1 INHALER Prov:JESSICA MACIAS DO 01/27/16 Albuterol Sulfate* (Proair HFA*) 8.5 Gm Hfa.aer.ad, 2 PUFF INH Q4H Y for WHEEZING AND SOB, #1 INHALER Prov:JESSICA MACIAS DO 01/27/16 Albuterol Sulfate* (Proair HFA*) 8.5 Gm Hfa.aer.ad, 2 PUFF INH Q4, #1 INHALER Prov:YVAN OLIVIER PA-C 01/15/16 Prednisone* (Prednisone*) 20 Mg Tab, 40 MG PO DAILY for 4 Days, TAB Prov:CATHY CARDOSO PA-C 12/31/15 Albuterol Sulfate* (Proair HFA*) 8.5 Gm Hfa.aer.ad, 2 PUFF INH Q4, #1 INHALER Prov:CATHY CARDOSO PA-C 12/31/15 Albuterol Sulfate* (Ventolin HFA*) 18 Gm Hfa.aer.ad, 2 PUFF INHALATION Q4H, #2 INHALER Prov:CIPRIANO TURCIOS DO 12/18/15 Albuterol Sulfate* (Proair HFA*) 8.5 Gm Hfa.aer.ad, 2 PUFF INH Q4, #1 INHALER Prov:STANTON ROBERTSON DO 11/30/15 Allergies Allergies: Coded Allergies: No Known Allergy (Unverified , 01/03/17) PMhx/Soc History of Surgery: No Anesthesia Reaction: No Hx Neurological Disorder: No Hx Respiratory Disorders: Yes (Asthma ) Hx Cardiac Disorders: No Hx Psychiatric Problems: No Hx Miscellaneous Medical Probl: No Hx Alcohol Use: No Hx Substance Use: Yes (Marijuana) Hx Tobacco Use: No Physical Exam Vitals Vital Signs Date Time Temp Pulse Resp B/P Pulse Ox O2 Delivery O2 Flow Rate FiO2 04/13/17 13:39 97.5 80 16 113/70 96 Physical Exam Const: Uok-xie-yalrlmttd, well-nourished. In no acute distress. Head: Atraumatic, normocephalic Eyes: Normal Conjunctiva without injection. No purulent discharge. PERRL. EOMI ENT: Normal external ear. Ear canal without erythema. Tympanic membrane pearly anglin without effusion or bulging. Nasal canal clear with normal turbinates. Moist oropharynx without tonsillar exudates. Non-erythematous pharynx. Uvula midline. No drooling. No trismus. Neck: Full range of motion. No meningismus. No cervical lymphadenopathy. Resp: Clear to auscultation bilaterally. No wheezing, rhonchi, rales, or crackles. No accessory muscle use. No retractions. Cardio: Regular rate and rhythm. No murmurs, rubs or gallops. Abd: Soft, non tender, non distended. Normal bowel sounds. No palpable masses. No rebound tenderness. No guarding. Skin: No petechiae or rashes Back: No midline tenderness. No CVA tenderness. Ext: No cyanosis, or edema. Neur: Awake and alert. Psych: Normal Mood and Affect Procedures/MDM 27-year-old male patient with no significant past medical history presents to the ED wanting a refill for his albuterol. Patient is afebrile nontoxic appearing. Patient has normal vital signs. Patient's physical exam include lungs which were clear to auscultation and a normal pulse oximetry. Patient is speaking in full sentences without difficulty. There is a low suspicion for pneumonia, pneumothorax, mononucleosis, pulmonary embolism, asthma exacerbation. Patient's pulse oxygenation is 96%. Low suspicion for epiglottitis, otitis media, otitis externa, viral/strep pharyngitis, sinusitis, peritonsillar abscess, mastoiditis, retropharyngeal abscess, meningitis, sepsis , acute abdomen or other emergent conditions. Discharge medications: Ventolin Patient was instructed to return to the ED for any new or worsening symptoms. They should otherwise follow up with the primary care provider within 1-2 days. The patient's questions were answered at the time of discharge. Patient understood and agreed with discharge management. Departure Diagnosis: Primary Impression: Encounter for medication refill Condition: Stable Patient Instructions: Taking Medicine Safely, Asthma Medications Referrals: [facility] YOU HAVE RECEIVED A MEDICAL SCREENING EXAM AND THE RESULTS INDICATE THAT YOU DO NOT HAVE A CONDITION THAT REQUIRES URGENT TREATMENT IN THE EMERGENCY DEPARTMENT. FURTHER EVALUATION AND TREATMENT OF YOUR CONDITION CAN WAIT UNTIL YOU ARE SEEN IN YOUR DOCTORS OFFICE WITHIN THE NEXT 1-2 DAYS. IT IS YOUR RESPONSIBILITY TO MAKE AN APPOINTMENT FOR [facility]. IF YOU HAVE A PRIMARY DOCTOR --you should call your primary doctor and schedule an appointment IF YOU DO NOT HAVE A PRIMARY DOCTOR YOU CAN CALL OUR PHYSICIAN REFERRAL HOTLINE AT IF YOU CAN NOT AFFORD TO SEE A PHYSICIAN YOU CAN CHOSE FROM THE FOLLOWING [facility] [address] [facility]. [facility] [address] [facility] [facility] [address] [facility] [facility] [address] [facility]. [facility] [address] [facility]. [facility]. [address] [facility]. [facility] YOU HAVE RECEIVED A MEDICAL SCREENING EXAM AND THE RESULTS INDICATE THAT YOU DO NOT HAVE A CONDITION THAT REQUIRES URGENT TREATMENT IN THE EMERGENCY DEPARTMENT. FURTHER EVALUATION AND TREATMENT OF YOUR CONDITION CAN WAIT UNTIL YOU ARE SEEN IN YOUR DOCTORS OFFICE WITHIN THE NEXT 1-2 DAYS. IT IS YOUR RESPONSIBILITY TO MAKE AN APPOINTMENT FOR [facility]-UP CARE. IF YOU HAVE A PRIMARY DOCTOR --you should call your primary doctor and schedule and appointment IF YOU DO NOT HAVE A PRIMARY DOCTOR YOU CAN CALL OUR PHYSICIAN REFERRAL HOTLINE AT . IF YOU CAN NOT AFFORD TO SEE A PHYSICIAN YOU CAN CHOSE FROM THE FOLLOWING [facility] INSTITUTIONS: [facility] [address] [place] [address] [facility] [address] [place] [address] [facility] [address] [place] [address] [facility] Additional Instructions: Call your primary care doctor TOMORROW for an appointment during the next 2-3 days.See the doctor sooner or return here if your condition worsens before your appointment time. WILLAM MCPHERSON PA-C Apr 13, 2017 20:41
== END 2017-04-13 15:44 | disposition home or self-care (01) ==
LOC: FTE 13:36
DX: Z76.0 Encounter for issue of repeat prescription (principal); J45.909 Unspecified asthma, uncomplicated
CPT/HCPCS: 99281

== ENCOUNTER 2017-05-05 00:15 | Emergency (ER) | payer OTHER ==
[~2017-05-05] VITALS: Ht 182.9 cm; Wt 86.0 kg
[2017-05-05 00:17] VITALS: Ht 182.9 cm; Wt 86.0 kg
[2017-05-05] MEDS ORDERED: IPRATROPIUM (NEB) 0.5 MG/2.5 ML AMP NEB STA (00:35)
[2017-05-05] MEDS ORDERED: predniSONE 20 MG TAB PO STA (00:35)
[2017-05-05] MEDS ORDERED: ALBUTEROL 0.083% (NEB) 2.5 MG/3 ML AMP NEB STA (00:35)
[2017-05-05] MEDS ORDERED: ALBU8.5H3 INH (00:46)
[2017-05-05] MEDS ORDERED: PRED20TA PO (00:46)
--- NOTE | 2017-05-05 00:48 | ERD ---
ER Documentation Chief Complaint Chief Complaint c/o SB. States having asthma attack. Out of meds. HPI 27-year-old male presents with asthma exacerbation. He try to use his inhaler at home but he ran out. This is been for the past 2 days. No fever. He is tolerating oral intake. No nausea vomiting. No hemoptysis. ROS All systems reviewed and are negative except as per history of present illness. Medications Home Meds Active Scripts Prednisone* (Prednisone*) 20 Mg Tab, 40 MG PO DAILY for 4 Days, TAB Prov:DANAY REN PA-C 05/05/17 Albuterol Sulfate* (Proair HFA*) 8.5 Gm Hfa.aer.ad, 2 PUFF INH Q4, #1 INHALER Prov:DANAY REN PA-C 05/05/17 Albuterol Sulfate* (Proair HFA*) 8.5 Gm Hfa.aer.ad, 2 PUFF INH Q4, #1 INHALER Prov:WILLAM MCPHERSON PA-C 04/13/17 Albuterol Sulfate* (Proair HFA*) 8.5 Gm Hfa.aer.ad, 2 PUFF INH Q4, #1 INHALER Prov:EDINSON TEIXEIRA 04/05/17 Fluticasone Propionate* (Flovent* HFA 110) 12 Gm Inha, 1 PUFF INHALATION BID, # 1 INHALER Prov:EDINSON TEIXEIRA 04/05/17 Albuterol Sulfate* (Ventolin HFA*) 18 Gm Hfa.aer.ad, 2 PUFF INHALATION Q4H, #1 INHALER Prov:PENNY CREWS 03/18/17 Diphenhydramine Hcl* (Benadryl*) 25 Mg Cap, 25 MG PO Q6, #10 CAP Prov:CESARIO MARKHAM NP 02/27/17 Albuterol Sulfate* (Proair HFA*) 8.5 Gm Hfa.aer.ad, 2 PUFF INH Q4, #1 INHALER Prov:CESARIO MARKHAM NP 02/27/17 Albuterol Sulfate* (Proair HFA*) 8.5 Gm Hfa.aer.ad, 2 PUFF INH Q4, #1 INHALER Prov:FRANSISCO DOWLING PA-C 02/07/17 Prednisone* (Prednisone*) 20 Mg Tab, 40 MG PO DAILY for 4 Days, TAB Prov:FRANSISCO DOWLINGC 02/07/17 Albuterol Sulfate* (Proair HFA*) 8.5 Gm Hfa.aer.ad, 2 PUFF INH Q6, #1 INHALER Prov:FRANSISCO DOWLINGC 01/03/17 Albuterol Sulfate* (Proair HFA*) 8.5 Gm Hfa.aer.ad, 2 PUFF INH Q4H Y for WHEEZING AND SOB, #1 INHALER Prov:OMI CAO PA-C 12/10/16 Beclomethasone Dip* (Qvar 40*) 7.3 Gm Inha, 1 PUFF INH BID, #1 INHALER Prov:WILLAM MCPHERSON PA-C 10/12/16 Albuterol Sulfate* (Proair HFA*) 8.5 Gm Hfa.aer.ad, 2 PUFF INH Q4, #1 INHALER Prov:WILLAM MCPHERSON PA-C 10/12/16 Prednisone* (Prednisone*) 20 Mg Tab, 40 MG PO DAILY for 4 Days, TAB Prov:WILLAM MCPHERSON PA-C 10/12/16 Albuterol Sulfate* (Proair HFA*) 8.5 Gm Hfa.aer.ad, 2 PUFF INH Q6H Y for COUGH, #1 INHALER Prov:JOHN ARREAGA MD 09/20/16 Prednisone (Prednisone) 20 Mg Tablet, 20 MG PO BID, #8 TAB Prov:JOHN ARREAGA MD 09/20/16 Albuterol Sulfate* (Ventolin HFA*) 18 Gm Hfa.aer.ad, 2 PUFF INHALATION Q4H, #1 INHALER Prov:AGUSTINA GOMEZ MD 08/11/16 Prednisone* (Prednisone*) 20 Mg Tab, 40 MG PO DAILY for 5 Days, TAB Prov:AGUSTINA GOMEZ MD 08/11/16 Albuterol Sulfate* (Ventolin HFA*) 18 Gm Hfa.aer.ad, 2 PUFF INHALATION Q4H, #2 INHALER Prov:CIPRIANO TURCIOS DO 06/15/16 Albuterol Sulfate* (Ventolin HFA*) 18 Gm Hfa.aer.ad, 2 PUFF INHALATION Q4H, #1 INHALER Prov:AGUSTINA GOMEZ MD 05/13/16 Albuterol Sulfate* (Ventolin HFA*) 18 Gm Hfa.aer.ad, 2 PUFF INHALATION Q4H, #1 INHALER Prov:EDINSON TEIXEIRA 05/01/16 Prednisone* (Prednisone*) 20 Mg Tab, 40 MG PO DAILY for 4 Days, TAB Prov:AGUSTINA GOMEZ MD 03/04/16 Albuterol Sulfate* (Ventolin HFA*) 18 Gm Hfa.aer.ad, 2 PUFF INHALATION Q4H, #1 INHALER 2 Refills Prov:AGUSTINA GOMEZ MD 03/04/16 Beclomethasone Dip* (Qvar 40*) 7.3 Gm Inha, 1 PUFF INH BID, #1 INHALER Prov:AGUSTINA GOMEZ MD 03/04/16 Benzonatate* (Tessalon Perle*) 100 Mg Capsule, 100 MG PO Q8H Y for COUGH, #30 CAP Prov:JESSICA MACIAS DO 01/27/16 Prednisone* (Prednisone*) 20 Mg Tab, 40 MG PO DAILY for 4 Days, #15 TAB take 40 mg for 4 days, then 30 mg for 3 days. Prov:JESSICA MACIAS DO 01/27/16 Fluticasone Propionate* (Flovent* HFA 110) 12 Gm Inha, 1 PUFF INHALATION BID, # 1 INHALER Prov:COLLEENJESSICA DO 01/27/16 Albuterol Sulfate* (Proair HFA*) 8.5 Gm Hfa.aer.ad, 2 PUFF INH Q4H Y for WHEEZING AND SOB, #1 INHALER Prov:COLLEENBAMBIJESSICA DO 01/27/16 Albuterol Sulfate* (Proair HFA*) 8.5 Gm Hfa.aer.ad, 2 PUFF INH Q4, #1 INHALER Prov:YVAN OLIVIER PA-C 01/15/16 Prednisone* (Prednisone*) 20 Mg Tab, 40 MG PO DAILY for 4 Days, TAB Prov:CATHY CARDOSO PA-C 12/31/15 Albuterol Sulfate* (Proair HFA*) 8.5 Gm Hfa.aer.ad, 2 PUFF INH Q4, #1 INHALER Prov:CATHY CARDOSO PA-C 12/31/15 Albuterol Sulfate* (Ventolin HFA*) 18 Gm Hfa.aer.ad, 2 PUFF INHALATION Q4H, #2 INHALER Prov:CIPRIANO TURCIOS DO 12/18/15 Albuterol Sulfate* (Proair HFA*) 8.5 Gm Hfa.aer.ad, 2 PUFF INH Q4, #1 INHALER Prov:PANDAELIANAAAMIRSTANTON MerFlor DO 11/30/15 Allergies Allergies: Coded Allergies: No Known Allergy (Unverified , 01/03/17) PMhx/Soc Medical and Surgical Hx: pt denies Medical Hx, pt denies Surgical Hx History of Surgery: No Anesthesia Reaction: No Hx Neurological Disorder: No Hx Respiratory Disorders: Yes (asthma) Hx Cardiac Disorders: No Hx Psychiatric Problems: No Hx Miscellaneous Medical Probl: No Hx Alcohol Use: Yes Hx Substance Use: No Hx Tobacco Use: No Smoking Status: Current some day smoker FmHx Family History: No diabetes Physical Exam Vitals Vital Signs Date Time Temp Pulse Resp B/P Pulse Ox O2 Delivery O2 Flow Rate FiO2 05/05/17 00:17 96.2 84 18 125/76 96 Physical Exam INITIAL VITAL SIGNS: Reviewed by me GENERAL: Awake, alert and oriented x 4, well appearing, nontoxic, speaking in full sentences. No acute distress HEAD: Atraumatic NECK: Supple. No masses. Full range of motion. No meningismus. No midline tenderness. EYES: EOMI. PERRL. RESPIRATORY: Mild bilateral inspiratory wheezing CV: Regular rate and rhythm. No murmurs, rubs, or gallops. Results 24 hrs Current Medications Medications (Trade) Dose Ordered Sig/Terence Route PRN Reason Start Time Stop Time Status Last Admin Dose Admin Albuterol (Proventil 0.083% (Neb)) 2.5 mg ONCE STAT NEB 05/05/17 00:35 05/05/17 00:36 DC 05/05/17 00:52 Ipratropium [place] (Atrovent 0.02% (Neb)) 0.5 mg ONCE STAT NEB 05/05/17 00:35 05/05/17 00:36 DC 05/05/17 00:52 Prednisone (Prednisone) 60 mg ONCE STAT PO 05/05/17 00:35 05/05/17 00:36 DC 05/05/17 00:44 Procedures/MDM 27-year-old male presents with asthma exacerbation. He was given a breathing treatment and prednisone with improvement of his symptoms and he was discharged with albuterol inhaler as well as a short course of prednisone. Patient counseled regarding my diagnostic impression and care plan. Prior to discharge all questions answered. Pt agrees with treatment plan and understands strict return precautions. Pt is instructed to follow up with primary care provider within 24-48 hours. Precautionary instructions provided including instructions to return to the ER if not improving or for any worsening or changing symptoms or concerns. Departure Diagnosis: Primary Impression: Asthma with acute exacerbation Condition: Stable Patient Instructions: Asthma, Acute (Adult) Additional Instructions: Call your primary care doctor TOMORROW for an appointment during the next 1-2 days.See the doctor sooner or return here if your condition worsens before your appointment time. DANAY REN PA-C May 05, 2017 00:48
[2017-05-05 01:35] VITALS: PULSE 78; RESP 18
== END 2017-05-05 01:35 | disposition home or self-care (01) ==
LOC: FTE 00:15
DX: J45.901 Unspecified asthma with (acute) exacerbation (principal); F17.210 Nicotine dependence, cigarettes, uncomplicated
CPT/HCPCS: 94664; J7512; Z7502; Z7610

== ENCOUNTER 2017-05-18 14:20 | Emergency (ER) | payer OTHER ==
[~2017-05-18] VITALS: Ht 185.4 cm; Wt 83.4 kg
[2017-05-18 14:24] VITALS: Ht 185.4 cm; Wt 83.4 kg
[2017-05-18] MEDS ORDERED: VALA500T PO (16:54)
[2017-05-18] MEDS ORDERED: ALBU18HF INHALATION (17:08)
--- NOTE | 2017-05-18 17:12 | ERD ---
ER Documentation Chief Complaint Chief Complaint needs std check (chlamydia) HPI This 27-year-old male actually comes emergency room because ago that he has had relations with for some time now tells him that she has had genital herpes for a while. She has never had an outbreak when they were together. He has no symptoms of had never had any symptoms of any burning or irritation or abnormal bumps. He is wondering what he should do. He has no other genital symptoms and is otherwise healthy. He does request a refill for his albuterol inhaler. No current shortness of breath. ROS All systems reviewed and are negative except as per history of present illness. Medications Home Meds Active Scripts Albuterol Sulfate* (Ventolin HFA*) 18 Gm Hfa.aer.ad, 2 PUFF INHALATION Q4H, #1 INHALER Prov:CIPRIANO TURCIOS DO 05/18/17 Valacyclovir Hcl* (Valacyclovir Hcl*) 500 Mg Tablet, 1 MG PO BID for herpes lesion, #20 TAB Prov:CIPRIANO TURCIOS DO 05/18/17 Prednisone* (Prednisone*) 20 Mg Tab, 40 MG PO DAILY for 4 Days, TAB Prov:DANAY REN PA-C 05/05/17 Albuterol Sulfate* (Proair HFA*) 8.5 Gm Hfa.aer.ad, 2 PUFF INH Q4, #1 INHALER Prov:DANAY REN PA-C 05/05/17 Albuterol Sulfate* (Proair HFA*) 8.5 Gm Hfa.aer.ad, 2 PUFF INH Q4, #1 INHALER Prov:WILLAM MCPHERSON PA-C 04/13/17 Albuterol Sulfate* (Proair HFA*) 8.5 Gm Hfa.aer.ad, 2 PUFF INH Q4, #1 INHALER Prov:EDINSON TEIXEIRA 04/05/17 Fluticasone Propionate* (Flovent* HFA 110) 12 Gm Inha, 1 PUFF INHALATION BID, # 1 INHALER Prov:EDINSON TEIXEIRA 04/05/17 Albuterol Sulfate* (Ventolin HFA*) 18 Gm Hfa.aer.ad, 2 PUFF INHALATION Q4H, #1 INHALER Prov:MARSRENYPENNY 03/18/17 Diphenhydramine Hcl* (Benadryl*) 25 Mg Cap, 25 MG PO Q6, #10 CAP Prov:CESARIO MARKHAMFlor CERTIFIED 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 02/27/17 Albuterol Sulfate* (Proair HFA*) 8.5 Gm Hfa.aer.ad, 2 PUFF INH Q4, #1 INHALER Prov:CESARIO MARKHAMFlor CERTIFIED [employer]LEX [employer]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 02/27/17 Albuterol Sulfate* (Proair HFA*) 8.5 Gm Hfa.aer.ad, 2 PUFF INH Q4, #1 INHALER Prov:FRANSISCO DOWLINGC 02/07/17 Prednisone* (Prednisone*) 20 Mg Tab, 40 MG PO DAILY for 4 Days, TAB Prov:FRANSISCO DOWLINGC 02/07/17 Albuterol Sulfate* (Proair HFA*) 8.5 Gm Hfa.aer.ad, 2 PUFF INH Q6, #1 INHALER Prov:FRANSISCO DOWLINGC 01/03/17 Albuterol Sulfate* (Proair HFA*) 8.5 Gm Hfa.aer.ad, 2 PUFF INH Q4H Y for WHEEZING AND SOB, #1 INHALER Prov:OMI CAO PA-C 12/10/16 Beclomethasone Dip* (Qvar 40*) 7.3 Gm Inha, 1 PUFF INH BID, #1 INHALER Prov:WILLAM MCPHERSON PA-C 10/12/16 Albuterol Sulfate* (Proair HFA*) 8.5 Gm Hfa.aer.ad, 2 PUFF INH Q4, #1 INHALER Prov:WILLAM MCPHERSON PA-C 10/12/16 Prednisone* (Prednisone*) 20 Mg Tab, 40 MG PO DAILY for 4 Days, TAB Prov:WILLAM MCPHERSON PA-C 10/12/16 Albuterol Sulfate* (Proair HFA*) 8.5 Gm Hfa.aer.ad, 2 PUFF INH Q6H Y for COUGH, #1 INHALER Prov:JOHN ARREAGA MD 09/20/16 Prednisone (Prednisone) 20 Mg Tablet, 20 MG PO BID, #8 TAB Prov:JOHN ARREAGA MD 09/20/16 Albuterol Sulfate* (Ventolin HFA*) 18 Gm Hfa.aer.ad, 2 PUFF INHALATION Q4H, #1 INHALER Prov:AGUSTINA GOMEZ MD 08/11/16 Prednisone* (Prednisone*) 20 Mg Tab, 40 MG PO DAILY for 5 Days, TAB Prov:AGUSTINA GOMEZ MD 08/11/16 Albuterol Sulfate* (Ventolin HFA*) 18 Gm Hfa.aer.ad, 2 PUFF INHALATION Q4H, #2 INHALER Prov:CIPRIANO TURCIOS DO 06/15/16 Albuterol Sulfate* (Ventolin HFA*) 18 Gm Hfa.aer.ad, 2 PUFF INHALATION Q4H, #1 INHALER Prov:AGUSTINA GOMEZ MD 05/13/16 Albuterol Sulfate* (Ventolin HFA*) 18 Gm Hfa.aer.ad, 2 PUFF INHALATION Q4H, #1 INHALER Prov:EDINSON TEIXEIRA 05/01/16 Prednisone* (Prednisone*) 20 Mg Tab, 40 MG PO DAILY for 4 Days, TAB Prov:AGUSTINA GOMEZ MD 03/04/16 Albuterol Sulfate* (Ventolin HFA*) 18 Gm Hfa.aer.ad, 2 PUFF INHALATION Q4H, #1 INHALER 2 Refills Prov:AGUSTINA GOMEZ MD 03/04/16 Beclomethasone Dip* (Qvar 40*) 7.3 Gm Inha, 1 PUFF INH BID, #1 INHALER Prov:AGUSTINA GOMEZ MD 03/04/16 Benzonatate* (Tessalon Perle*) 100 Mg Capsule, 100 MG PO Q8H Y for COUGH, #30 CAP Prov:COLLEEN,JESSICA DO 01/27/16 Prednisone* (Prednisone*) 20 Mg Tab, 40 MG PO DAILY for 4 Days, #15 TAB take 40 mg for 4 days, then 30 mg for 3 days. Prov:COLLEEN,JESSICA DO 01/27/16 Fluticasone Propionate* (Flovent* HFA 110) 12 Gm Inha, 1 PUFF INHALATION BID, # 1 INHALER Prov:COLLEENJESSICA DO 01/27/16 Albuterol Sulfate* (Proair HFA*) 8.5 Gm Hfa.aer.ad, 2 PUFF INH Q4H Y for WHEEZING AND SOB, #1 INHALER Prov:JESSICA MACIAS DO 01/27/16 Albuterol Sulfate* (Proair HFA*) 8.5 Gm Hfa.aer.ad, 2 PUFF INH Q4, #1 INHALER Prov:YVAN OLIVIER PA-C 01/15/16 Prednisone* (Prednisone*) 20 Mg Tab, 40 MG PO DAILY for 4 Days, TAB Prov:CATHY CARDOSO PA-C 12/31/15 Albuterol Sulfate* (Proair HFA*) 8.5 Gm Hfa.aer.ad, 2 PUFF INH Q4, #1 INHALER Prov:CATHY CARDOSO PA-C 12/31/15 Albuterol Sulfate* (Ventolin HFA*) 18 Gm Hfa.aer.ad, 2 PUFF INHALATION Q4H, #2 INHALER Prov:CIPRIANO TURCIOS DO 12/18/15 Albuterol Sulfate* (Proair HFA*) 8.5 Gm Hfa.aer.ad, 2 PUFF INH Q4, #1 INHALER Prov:STANTON ROBERTSON DO 11/30/15 Allergies Allergies: Coded Allergies: No Known Allergy (Unverified , 01/03/17) PMhx/Soc History of Surgery: No Anesthesia Reaction: No Hx Neurological Disorder: No Hx Respiratory Disorders: Yes (asthma) Hx Cardiac Disorders: No Hx Psychiatric Problems: No Hx Miscellaneous Medical Probl: No Hx Alcohol Use: Yes Hx Substance Use: Yes (MJ) Hx Tobacco Use: No Smoking Status: Never smoker Physical Exam Vitals Vital Signs Date Time Temp Pulse Resp B/P Pulse Ox O2 Delivery O2 Flow Rate FiO2 05/18/17 14:24 98.2 58 18 121/80 97 Physical Exam Const: [] No distress Eyes: Normal Conjunctiva ENT: Normal External Ears, Nose and Mouth. Skin: No petechiae or rashes Ext: No cyanosis, or edema Neur: Awake and alert and oriented 3, no focal deficits Psych: Normal Mood and Affect Procedures/MDM This gentleman comes in some with questions about the herpes simplex virus and the likelihood of exposure. Told him that titers can be drawn positive titers do not mean he will actually have expressed the disease. We discussed the symptoms of possible ramifications at the bedside as well as safety precautions that he can take including avoidance of intercourse with the person completely. Spent more than 8 minutes at the bedside discussing this with the patient. Going to give him prescription for Valtrex in case he does develop symptoms. Also refilling his albuterol inhaler. Giving a primary care follow-up in case he would like to have the titers drawn as well as return precautions to the ER. Departure Diagnosis: Primary Impression: Possible exposure to STD Condition: Stable Patient Instructions: The Herpes Virus, Herpes Genitalis, Hsv: Type Ii, Herpes Labialis, Hsv: Type I Referrals: [facility] YOU HAVE RECEIVED A MEDICAL SCREENING EXAM AND THE RESULTS INDICATE THAT YOU DO NOT HAVE A CONDITION THAT REQUIRES URGENT TREATMENT IN THE EMERGENCY DEPARTMENT. FURTHER EVALUATION AND TREATMENT OF YOUR CONDITION CAN WAIT UNTIL YOU ARE SEEN IN YOUR DOCTORS OFFICE WITHIN THE NEXT 1-2 DAYS. IT IS YOUR RESPONSIBILITY TO MAKE AN APPOINTMENT FOR FOLOW-UP CARE. IF YOU HAVE A PRIMARY DOCTOR --you should call your primary doctor and schedule an appointment IF YOU DO NOT HAVE A PRIMARY DOCTOR YOU CAN CALL OUR PHYSICIAN REFERRAL HOTLINE AT IF YOU CAN NOT AFFORD TO SEE A PHYSICIAN YOU CAN CHOSE FROM THE FOLLOWING [facility] [address] [facility]. [facility] [address] [facility] [facility] [address] [facility] [facility] [address] [facility]. [facility] [address] [facility]. [facility]. [address] Additional Instructions: Call your primary care doctor TOMORROW for an appointment during the next 2-3 days.See the doctor sooner or return here if your condition worsens before your appointment time. CIPRIANO TURCIOS DO May 18, 2017 17:12
== END 2017-05-18 18:50 | disposition home or self-care (01) ==
LOC: FTE 14:20
DX: Z20.2 Contact with and (suspected) exposure to infections with a predominantly sexual mode of transmission (principal); J45.909 Unspecified asthma, uncomplicated
CPT/HCPCS: 99284

== ENCOUNTER 2017-06-22 10:40 | Emergency (ER) | END 2017-06-22 14:00 | disposition home or self-care (01) ==

== ENCOUNTER 2017-07-09 12:24 | Emergency (ER) | END 2017-07-09 15:11 | disposition home or self-care (01) ==

== ENCOUNTER 2017-07-29 14:17 | Emergency (ER) | END 2017-07-29 17:58 | disposition home or self-care (01) ==

== ENCOUNTER 2017-08-24 04:01 | Emergency (ER) | END 2017-08-24 05:25 | disposition home or self-care (01) ==

== ENCOUNTER 2017-09-14 10:32 | Emergency (ER) | END 2017-09-14 11:01 | disposition home or self-care (01) ==

== ENCOUNTER 2017-09-27 20:31 | Emergency (ER) | END 2017-09-27 22:41 | disposition home or self-care (01) ==

== ENCOUNTER 2017-10-15 22:52 | Emergency (ER) | END 2017-10-16 03:16 | disposition home or self-care (01) ==

== ENCOUNTER 2017-10-19 05:24 | Emergency (ER) | END 2017-10-19 06:18 | disposition home or self-care (01) ==

== ENCOUNTER 2017-11-09 07:42 | Emergency (ER) | END 2017-11-09 10:47 | disposition home or self-care (01) ==

== ENCOUNTER 2017-11-29 21:49 | Emergency (ER) | END 2017-11-29 23:58 | disposition home or self-care (01) ==

== ENCOUNTER 2017-12-20 00:53 | Emergency (ER) | END 2017-12-20 04:32 | disposition home or self-care (01) ==

== ENCOUNTER 2018-01-11 18:57 | Emergency (ER) | END 2018-01-11 19:42 | disposition home or self-care (01) ==

== ENCOUNTER 2018-02-02 00:28 | Emergency (ER) | END 2018-02-02 01:50 | disposition home or self-care (01) ==

== ENCOUNTER 2018-02-23 22:23 | Emergency (ER) | END 2018-02-24 02:06 | disposition home or self-care (01) ==

== ENCOUNTER 2018-04-30 00:01 | Emergency (ER) | END 2018-04-30 02:45 | disposition home or self-care (01) ==

== ENCOUNTER 2018-06-25 17:06 | Emergency (ER) | payer OTHER ==
[~2018-06-25] VITALS: Wt 89.4 kg
[~2018-06-25 17:06] MED LIST changes: -ALBU8.5H3 INH; +ALBU8.5H8 INH; +BECL10.6 IH; +BENZ-6 PO; -BENZ100C70 PO; +CLOT30CR35 TOP; +MOME13HF INHALATION; +ONDA4TAB8 PO; +VALA500T PO
[2018-06-25 17:13] VITALS: BP 137/78; PULSE 94; RESP 18
[2018-06-25] MEDS ORDERED: ALBU18HF INHALATION (19:07)
--- NOTE | 2018-06-25 19:09 | ERD ---
ER Documentation Chief Complaint Chief Complaint needs ventolin inhaler refill. no SOB at this time. HPI 28-year-old male history of remote asthma who presents to the emergency room asking for inhaler refill. He denies any wheezing or shortness of breath. He states that he just ran out of his inhaler that he uses occasionally. No other fevers chills cough chest pain or shortness of breath. No other issues reported. ROS All systems reviewed and are negative except as per history of present illness. Medications Home Meds Active Scripts Albuterol Sulfate* (Ventolin HFA*) 18 Gm Hfa.aer.ad, 2 PUFF INHALATION Q4H, #1 INHALER 1 Refill Prov:KEV FITCH MD 06/25/18 Prednisone* (Prednisone*) 20 Mg Tab, 60 MG PO DAILY for 5 Days, TAB Prov:NAIF BENITO F 04/30/18 Albuterol Sulfate* (Ventolin HFA*) 18 Gm Hfa.aer.ad, 2 PUFF INHALATION Q4H PRN f or SHORTNESS OF BREATH, #1 INHALER Prov:BECKIE BENITOAR F 04/30/18 Albuterol Sulfate* (Ventolin HFA*) 18 Gm Hfa.aer.ad, 2 PUFF INHALATION Q4H, #1 INHALER Prov:JATIN THOMPSON PA-C 02/24/18 Mometasone-Formoterol (Dulera) 200-5 Mcg/Inh - 13 Gm Hfa.aer.ad, 2 PUFFS INHALATION BID, #1 INHALER Prov:JATIN THOMPSON PA-C 02/24/18 Prednisone* (Prednisone*) 20 Mg Tab, 40 MG PO DAILY for 4 Days, TAB Prov:JATIN THOMPSON PA-C 02/24/18 Albuterol Sulfate* (Proair HFA*) 8.5 Gm Hfa.aer.ad, 2 PUFF INH Q4H PRN for WHEEZING AND SOB, #1 INHALER Prov:FIDE LYNN NP 02/02/18 Albuterol Sulfate* (Ventolin HFA*) 18 Gm Hfa.aer.ad, 2 PUFF INHALATION Q4H, #1 INHALER Prov:ASH AUSTIN MD 01/11/18 Albuterol Sulfate* (Ventolin HFA*) 18 Gm Hfa.aer.ad, 2 PUFF INHALATION Q4H, #1 INHALER Prov:MARS,PENNY 12/20/17 Albuterol Sulfate* (Proair HFA*) 8.5 Gm Hfa.aer.ad, 2 PUFF INH Q4H PRN for WHEEZING AND SOB, #1 INHALER Prov:FIDE LYNN NP 11/29/17 Albuterol Sulfate* (Ventolin HFA*) 18 Gm Hfa.aer.ad, 2 PUFF INHALATION Q4H, #1 INHALER Prov:YVAN OLIVIER PA-C 11/09/17 Ondansetron Hcl* (Zofran*) 4 Mg Tablet, 4 MG PO Q6H for NAUSEA AND/OR VOMITING, #30 TAB Prov:YVAN OLIVIER PA-C 11/09/17 Albuterol Sulfate* (Proair HFA*) 8.5 Gm Hfa.aer.ad, 2 PUFF INH Q6, #1 INHALER Prov:HAY WALKER PA-C 10/19/17 Prednisone (Prednisone) 20 Mg Tablet, 40 MG PO DAILY for 4 Days, #8 TAB Prov:MARS,PENNY 10/16/17 Beclomethasone Dipropionate (Qvar Redihaler (40 MCG)) 10.6 Gm Hfa.aeroba, 10.6 GM IH BID, #1 INH Prov:MARS,PENNY 10/16/17 Albuterol Sulfate* (Ventolin HFA*) 18 Gm Hfa.aer.ad, 2 PUFF INHALATION Q4H, #1 INHALER Prov:MARS,PENNY 10/16/17 Clotrimazole* (Lotrimin*) 1%-30 Gm Cream..g., 1 APPLIC TOP BID for 14 Days, TUB Prov:MARS,PENNY 10/16/17 Albuterol Sulfate* (Ventolin HFA*) 18 Gm Hfa.aer.ad, 2 PUFF INHALATION Q4H, #1 INHALER Prov:CIPRIANO TURCIOS DO 09/27/17 Albuterol Sulfate* (Ventolin HFA*) 18 Gm Hfa.aer.ad, 2 PUFF INHALATION Q4H, #1 INHALER Prov:OMI CAO PA-C 09/14/17 Albuterol Sulfate* (Ventolin HFA*) 18 Gm Hfa.aer.ad, 2 PUFF INHALATION Q4H, #1 INHALER Prov:HUMBERTO URIAS PA-C 08/24/17 Fluticasone Propionate* (Flovent* HFA 110) 12 Gm Inha, 1 PUFF INHALATION BID, #1 INHALER Prov:HUMBERTO URIAS PA-C 08/24/17 Prednisone* (Prednisone*) 20 Mg Tab, 60 MG PO DAILY for 5 Days, TAB Prov:NAIF BENITO F 07/29/17 Albuterol Sulfate* (Ventolin HFA*) 18 Gm Hfa.aer.ad, 2 PUFF INHALATION Q4H, #1 INHALER Prov:BECKIE BENITOAR F 07/29/17 Albuterol Sulfate* (Ventolin HFA*) 18 Gm Hfa.aer.ad, 2 PUFF INHALATION Q6H, #1 INHALER Prov:HAY WALKER PA-C 07/09/17 Albuterol Sulfate* (Proair HFA*) 8.5 Gm Hfa.aer.ad, 2 PUFF INH Q4, #1 INHALER Prov:MARYANNE KHAN PA-C 06/22/17 Albuterol Sulfate* (Ventolin HFA*) 18 Gm Hfa.aer.ad, 2 PUFF INHALATION Q4H, #1 INHALER Prov:CIPRIANO TURCIOS DO 05/18/17 Valacyclovir Hcl* (Valacyclovir Hcl*) 500 Mg Tablet, 1 MG PO BID for herpes lesion, #20 TAB Prov:CIPRIANO TURCIOS DO 05/18/17 Prednisone* (Prednisone*) 20 Mg Tab, 40 MG PO DAILY for 4 Days, TAB Prov:DANAY REN PA-C 05/05/17 Albuterol Sulfate* (Proair HFA*) 8.5 Gm Hfa.aer.ad, 2 PUFF INH Q4, #1 INHALER Prov:DANAY REN PA-C 05/05/17 Albuterol Sulfate* (Proair HFA*) 8.5 Gm Hfa.aer.ad, 2 PUFF INH Q4, #1 INHALER Prov:WILLAM MCPHERSON PA-C 04/13/17 Albuterol Sulfate* (Proair HFA*) 8.5 Gm Hfa.aer.ad, 2 PUFF INH Q4, #1 INHALER Prov:EDINSON TEIXEIRA Julio Cesar 04/05/17 Fluticasone Propionate* (Flovent* HFA 110) 12 Gm Inha, 1 PUFF INHALATION BID, #1 INHALER Prov:EDINSON TEIXEIRA Julio Cesar 04/05/17 Albuterol Sulfate* (Ventolin HFA*) 18 Gm Hfa.aer.ad, 2 PUFF INHALATION Q4H, #1 INHALER Prov:MARSPENNY 03/18/17 Diphenhydramine Hcl* (Benadryl*) 25 Mg Cap, 25 MG PO Q6, #10 CAP Prov:CESARIO MARKHAM NP 02/27/17 Albuterol Sulfate* (Proair HFA*) 8.5 Gm Hfa.aer.ad, 2 PUFF INH Q4, #1 INHALER Prov:CESARIO MARKHAM NP 02/27/17 Albuterol Sulfate* (Proair HFA*) 8.5 Gm Hfa.aer.ad, 2 PUFF INH Q4, #1 INHALER Prov:FRANSISCO DOWLING PA-C 02/07/17 Prednisone* (Prednisone*) 20 Mg Tab, 40 MG PO DAILY for 4 Days, TAB Prov:FRANSISCO DOWLING PA-C 02/07/17 Albuterol Sulfate* (Proair HFA*) 8.5 Gm Hfa.aer.ad, 2 PUFF INH Q6, #1 INHALER Prov:FRANSISCO DOWLING PA-C 01/03/17 Albuterol Sulfate* (Proair HFA*) 8.5 Gm Hfa.aer.ad, 2 PUFF INH Q4H PRN for WHEEZING AND SOB, #1 INHALER Prov:OMI CAO PA-C 12/10/16 Beclomethasone Dip* (Qvar 40*) 7.3 Gm Inha, 1 PUFF INH BID, #1 INHALER Prov:WILLAM MCPHERSON PA-C 10/12/16 Albuterol Sulfate* (Proair HFA*) 8.5 Gm Hfa.aer.ad, 2 PUFF INH Q4, #1 INHALER Prov:WILLAM MCPHERSON PA-C 10/12/16 Prednisone* (Prednisone*) 20 Mg Tab, 40 MG PO DAILY for 4 Days, TAB Prov:WILLAM MCPHERSON PA-C 10/12/16 Albuterol Sulfate* (Proair HFA*) 8.5 Gm Hfa.aer.ad, 2 PUFF INH Q6H PRN for COUGH, #1 INHALER Prov:JOHN ARREAGA MD 09/20/16 Prednisone (Prednisone) 20 Mg Tablet, 20 MG PO BID, #8 TAB Prov:JOHN ARREAGA MD 09/20/16 Albuterol Sulfate* (Ventolin HFA*) 18 Gm Hfa.aer.ad, 2 PUFF INHALATION Q4H, #1 INHALER Prov:AGUSTINA GOMEZ MD 08/11/16 Prednisone* (Prednisone*) 20 Mg Tab, 40 MG PO DAILY for 5 Days, TAB Prov:AGUSTINA GOMEZ MD 08/11/16 Albuterol Sulfate* (Ventolin HFA*) 18 Gm Hfa.aer.ad, 2 PUFF INHALATION Q4H, #2 INHALER Prov:CIPRIANO TURCIOS DO 06/15/16 Albuterol Sulfate* (Ventolin HFA*) 18 Gm Hfa.aer.ad, 2 PUFF INHALATION Q4H, #1 INHALER Prov:AGUSTINA GOMEZ MD 05/13/16 Albuterol Sulfate* (Ventolin HFA*) 18 Gm Hfa.aer.ad, 2 PUFF INHALATION Q4H, #1 INHALER Prov:EDINSON TEIXEIRA 05/01/16 Prednisone* (Prednisone*) 20 Mg Tab, 40 MG PO DAILY for 4 Days, TAB Prov:AGUSTINA GOMEZ MD 03/04/16 Albuterol Sulfate* (Ventolin HFA*) 18 Gm Hfa.aer.ad, 2 PUFF INHALATION Q4H, #1 INHALER 2 Refills Prov:AGUSTINA GOMEZ MD 03/04/16 Beclomethasone Dip* (Qvar 40*) 7.3 Gm Inha, 1 PUFF INH BID, #1 INHALER Prov:AGUSTINA GOMEZ MD 03/04/16 Benzonatate* (Tessalon Perle*) 100 Mg Capsule, 100 MG PO Q8H PRN for COUGH, #30 CAP Prov:JESSICA MACIAS 01/27/16 Prednisone* (Prednisone*) 20 Mg Tab, 40 MG PO DAILY for 4 Days, #15 TAB take 40 mg for 4 days, then 30 mg for 3 days. Prov:COLLEENJESSICA FOUNTAIN 01/27/16 Fluticasone Propionate* (Flovent* HFA 110) 12 Gm Inha, 1 PUFF INHALATION BID, #1 INHALER Prov:COLLEEN,[facility] 01/27/16 Albuterol Sulfate* (Proair HFA*) 8.5 Gm Hfa.aer.ad, 2 PUFF INH Q4H PRN for WHEEZING AND SOB, #1 INHALER Prov:COLLEENJESSICA FOUNTAIN 01/27/16 Albuterol Sulfate* (Proair HFA*) 8.5 Gm Hfa.aer.ad, 2 PUFF INH Q4, #1 INHALER Prov:YVAN OLIVIER PA-C 01/15/16 Prednisone* (Prednisone*) 20 Mg Tab, 40 MG PO DAILY for 4 Days, TAB Prov:CATHY CARDOSO PA-C 12/31/15 Albuterol Sulfate* (Proair HFA*) 8.5 Gm Hfa.aer.ad, 2 PUFF INH Q4, #1 INHALER Prov:CATHY CARDOSO PA-C 12/31/15 Albuterol Sulfate* (Ventolin HFA*) 18 Gm Hfa.aer.ad, 2 PUFF INHALATION Q4H, #2 INHALER Prov:CIPRIANO TURCIOS DO 12/18/15 Albuterol Sulfate* (Proair HFA*) 8.5 Gm Hfa.aer.ad, 2 PUFF INH Q4, #1 INHALER Prov:STANTON ROBERTSON DO 11/30/15 Allergies Allergies: Coded Allergies: shellfish derived (Verified Allergy, Unknown, 02/02/18) PMhx/Soc History of Surgery: No Anesthesia Reaction: No Hx Neurological Disorder: No Hx Respiratory Disorders: Yes (Asthma) Hx Cardiac Disorders: No Hx Psychiatric Problems: No Hx Miscellaneous Medical Probl: No Hx Alcohol Use: Yes (Social) Hx Substance Use: No Hx Tobacco Use: No FmHx Family History: No diabetes Physical Exam Vitals Vital Signs Date Temp Pulse Resp B/P (MAP) Pulse Ox O2 O2 Flow FiO2 Time Delivery Rate 06/25/18 97.5 94 18 137/78 96 17:13 (97) Physical Exam General: Well developed, well nourished, no acute distress Head: Normocephalic, atraumatic. Eyes: EOM intact ENT: Moist mucous membranes Neck: Full ROM Respiratory: No respiratory distress Cardiovascular: Well perfused distally Abdominal: Nondistended : Deferred MSK: No edema, no unilateral swelling, 5/5 strength Neurologic: Alert and oriented, moving all extremities, normal speech, steady gait Skin: No rash Psych: Normal mood Procedures/MDM Patient presents for medication refill. No evidence of asthma exacerbation or acute symptoms. Patient is resting comfortably and otherwise exquisitely well-appearing in the ER setting. Primary care follow-up recommended. The patient does not have an identifiable emergent medical condition that warrants inpatient hospitalization at this time. The patient is deemed safe for discharge with outpatient follow-up. We discussed follow up with the patient's primary care doctor within 24 to 48 hours as needed. We also discussed return to the emergency room for worsening symptoms or worsening condition. Outpatient referral: [None required] Discharge Medications: Albuterol Departure Diagnosis: Primary Impression: Encounter for medication refill Condition: Stable Patient Instructions: Taking Medicine Safely Referrals: [facility] YOU HAVE RECEIVED A MEDICAL SCREENING EXAM AND THE RESULTS INDICATE THAT YOU DO NOT HAVE A CONDITION THAT REQUIRES URGENT TREATMENT IN THE EMERGENCY DEPARTMENT. FURTHER EVALUATION AND TREATMENT OF YOUR CONDITION CAN WAIT UNTIL YOU ARE SEEN IN YOUR DOCTORS OFFICE WITHIN THE NEXT 1-2 DAYS. IT IS YOUR RESPONSIBILITY TO MAKE AN APPOINTMENT FOR FOLOW-UP CARE. IF YOU HAVE A PRIMARY DOCTOR --you should call your primary doctor and schedule an appointment IF YOU DO NOT HAVE A PRIMARY DOCTOR YOU CAN CALL OUR PHYSICIAN REFERRAL HOTLINE AT IF YOU CAN NOT AFFORD TO SEE A PHYSICIAN YOU CAN CHOSE FROM THE FOLLOWING [facility] [address] [facility]. [facility] [address] [facility]. [facility] [address] [facility]. [facility] [address] [facility]. [facility] [address] [facility]. [facility]. [address] [facility]. [facility] YOU HAVE RECEIVED A MEDICAL SCREENING EXAM AND THE RESULTS INDICATE THAT YOU DO NOT HAVE A CONDITION THAT REQUIRES URGENT TREATMENT IN THE EMERGENCY DEPARTMENT. FURTHER EVALUATION AND TREATMENT OF YOUR CONDITION CAN WAIT UNTIL YOU ARE SEEN IN YOUR DOCTORS OFFICE WITHIN THE NEXT 1-2 DAYS. IT IS YOUR RESPONSIBILITY TO MAKE AN APPOINTMENT FOR FOLOW-UP CARE. IF YOU HAVE A PRIMARY DOCTOR --you should call your primary doctor and schedule and appointment IF YOU DO NOT HAVE A PRIMARY DOCTOR YOU CAN CALL OUR PHYSICIAN REFERRAL HOTLINE AT . IF YOU CAN NOT AFFORD TO SEE A PHYSICIAN YOU CAN CHOSE FROM THE FOLLOWING [facility] INSTITUTIONS: [facility] [address] [place] [address] [facility] [address] [place] [address] [facility] [address] [place] [address] Additional Instructions: Call your primary care doctor TOMORROW for an appointment during the next 1 WEEK.Tell the corporate secretary that you were referred from this facility.See the doctor sooner or return here if your condition worsens before your appointment time. KEV FITCH MD Jun 25, 2018 19:09
== END 2018-06-25 19:20 | disposition home or self-care (01) ==
LOC: FTE 17:06
DX: Z76.0 Encounter for issue of repeat prescription (principal); J45.909 Unspecified asthma, uncomplicated
CPT/HCPCS: 99281

== ENCOUNTER 2018-12-05 22:41 | Emergency (ER) | payer SELFPAY ==
[~2018-12-05] VITALS: Ht 193 cm; Wt 87.1 kg
[2018-12-05 22:52] VITALS: BP 113/71; PULSE 75; RESP 18; Ht 193 cm; Wt 87.1 kg
== END 2018-12-06 01:15 | disposition left against medical advice (07) ==
LOC: FTE 22:41
DX: Z53.21 Procedure and treatment not carried out due to patient leaving prior to being seen by health care provider (principal)

== ENCOUNTER 2019-01-18 16:36 | Emergency (ER) | payer OTHER ==
[~2019-01-18] VITALS: Ht 193 cm; Wt 90.3 kg
[2019-01-18 16:42] VITALS: BP 120/70; PULSE 88; RESP 17; Ht 193 cm; Wt 90.3 kg
== END 2019-01-18 18:54 | disposition home or self-care (01) ==
LOC: E/R 16:36
DX: Z76.0 Encounter for issue of repeat prescription (principal); J45.901 Unspecified asthma with (acute) exacerbation
CPT/HCPCS: 99281

== ENCOUNTER 2019-02-23 23:44 | Emergency (ER) | payer SELFPAY ==
[~2019-02-23] VITALS: Ht 193 cm; Wt 86.2 kg
[2019-02-23 23:47] VITALS: Ht 193 cm; Wt 86.2 kg
[2019-02-24 00:04] VITALS: BP 146/84; PULSE 105; RESP 21
== END 2019-02-24 04:08 | disposition left against medical advice (07) ==
LOC: FTE 23:44
DX: Z53.21 Procedure and treatment not carried out due to patient leaving prior to being seen by health care provider (principal)